=== PATIENT | female | born 1965 | race Caucasian/White ===

== ENCOUNTER 2017-10-11 06:37 | Inpatient (IN) | payer MEDICARE, OTHER ==
[2017-10-11] MEDS: ONDANSETRON 4 MG INJ IV ×4 (07:09→10:58)
[2017-10-11] MEDS: HYDROmorphONE 2 MG/ML SYG IV (07:09)
[2017-10-11 07:34] LABS: ADD MAN DIFF? NO
[2017-10-11 07:47] LABS: ABNORMAL IP MESSAGE 1; BASOPHIL # 0.1 10^3/ul (0.0-0.1); EOSINOPHILS # 0.4 10^3/ul (0.0-0.5); EOSINOPHILS % 7.1 % (0.0-7.0); HEMATOCRIT 31.6 % (37.0-47.0); HEMOGLOBIN 11.3 g/dl (12.0-16.0); LYMPHOCYTES # 2.5 10^3/ul (0.8-2.9); MEAN CORPUSCULAR HGB CONC 35.8 g/dl (32.0-37.0); MEAN CORPUSCULAR VOLUME 103.6 fl (82.0-101.0); MEAN PLATELET VOLUME 13.1 fl (7.4-10.4); MONOCYTE # 0.6 10^3/ul (0.3-0.9); MONOCYTES % 11.7 % (0.0-11.0); NEUTROPHIL # 1.5 10^3/ul (1.6-7.5); PLATELET COUNT 162 10^3/UL (140-415); RED BLOOD COUNT 3.05 10^6/ul (4.20-5.40); RED CELL DISTRIBUTION WIDTH 14.4 % (11.5-14.5)
[2017-10-11 07:49] LABS: POSITIVE DIFF @See below
[2017-10-11 08:06] LABS: INR 1.29; PARTIAL THROMBOPLASTIN TIME 35.8 Sec (25.0-35.0); PROTIME 16.3 Sec (11.9-14.9); PT RATIO 1.3
[2017-10-11] MEDS: CEFTRIAXONE 1 GM/50 ML (PMX) 50 ML IVPB ×2 (08:14→10:58)
[2017-10-11] MEDS: HYDROmorphONE 1 MG/ML SYG IV ×2 (08:15→09:13)
[2017-10-11 08:16] LABS: ALANINE AMINOTRANSFERASE 47 IU/L (13-69); ALBUMIN 3.8 g/dl (3.3-4.9); ALKALINE PHOSPHATASE 165 IU/L (42-121); ANION GAP 21 (8-16); ASPARTATE AMINO TRANSFERASE 84 IU/L (15-46); BILIRUBIN,INDIRECT 0.6 mg/dl (0-1.1); BILIRUBIN,TOTAL 0.6 mg/dl (0.2-1.3); BLOOD UREA NITROGEN 11 mg/dl (7-20); CALCIUM 8.6 mg/dl (8.4-10.2); CARBON DIOXIDE 26 mmol/L (21-31); CHLORIDE 101 mmol/L (97-110); CREATININE 0.84 mg/dl (0.44-1.00); GLUCOSE 217 mg/dl (70-220); SODIUM 144 mmol/L (135-144); TOTAL PROTEIN 7.7 g/dl (6.1-8.1)
[2017-10-11] MEDS ORDERED: ACETAMINOPHEN 325 MG TAB PO (09:30)
[2017-10-11] MEDS ORDERED: ONDANSETRON 4 MG INJ IV ×2 (10:00→18:30)
[2017-10-11] MEDS ORDERED: VANCOMYCIN IV PER PHARMACY XX (10:30)
[2017-10-11] MEDS: morphine 2 MG INJ IV (10:58)
[2017-10-11 11:13] LABS: HEMOGLOBIN A1C 7.1 % (0-5.9)
[2017-10-11 11:29] LABS: CREATINE KINASE 609 IU/L (23-200)
[2017-10-11 11:31] LABS: MAGNESIUM 1.2 mg/dl (1.7-2.5)
[2017-10-11 11:31] LABS: PHOSPHORUS 4.3 mg/dl (2.5-4.9)
[2017-10-11 11:39] LABS: CK INDEX 1.2; CK-MB 7.59 ng/ml (0.0-2.4)
[2017-10-11 11:46] LABS: TROPONIN-I < 0.012 ng/ml (0.00-0.12)
[2017-10-11] MEDS ORDERED: morphine 4 MG/ML VIAL (12:17)
[2017-10-11] MEDS: morphine 4 MG/ML VIAL IV ×2 (12:20→21:46)
[2017-10-11] MEDS: SOD CHLORIDE 0.9% 1,000 ML IV ×3 (12:20→22:29)
[2017-10-11] MEDS: LORAZEPAM 2 MG INJ IV (12:32)
[2017-10-11] MEDS: GABAPENTIN 300 MG CAP PO ×2 (13:00→21:00)
[2017-10-11] MEDS: VANCOMYCIN 1 GM in SODIUM CHLORIDE 0.45 % 250 ML IVPB (13:00)
[2017-10-11 15:20] LABS: CREATINE KINASE 501 IU/L (23-200)
[2017-10-11 15:32] LABS: CK INDEX 1.4; CK-MB 6.86 ng/ml (0.0-2.4)
[2017-10-11 15:35] LABS: TROPONIN-I < 0.012 ng/ml (0.00-0.12)
[2017-10-11] MEDS ORDERED: LIDOCAINE 2% (SDV) 5 ML INJ (16:18)
[2017-10-11] MEDS ORDERED: PROPOFOL 0 ML (16:18)
[2017-10-11] MEDS ORDERED: MIDAZOLAM 1 MG/ML 2 ML INJ ×2 (16:18→17:16)
[2017-10-11] MEDS ORDERED: POLYMYXIN/BACITRACIN 1L IRRIG (16:18)
[2017-10-11] MEDS ORDERED: FENTAnyl 50 MCG/ML VIAL ×2 (16:18→17:16)
[2017-10-11] MEDS ORDERED: GLUCOSE GEL 15 GRAM TUBE BUCCAL (16:30)
[2017-10-11] MEDS ORDERED: GLUCOSE GEL 15 GRAM TUBE PO ×2 (16:30)
[2017-10-11] MEDS ORDERED: GLUCAGON 1 MG INJ IM (16:30)
[2017-10-11] MEDS ORDERED: DEXTROSE 50% 50 ML SYRINGE IV ×2 (16:30)
[2017-10-11] MEDS ORDERED: CEFAZOLIN 1 GM INJ (17:00)
[2017-10-11] MEDS ORDERED: PROPOFOL 20 ML (17:15)
[2017-10-11] MEDS ORDERED: ROPIVACAINE 0.5 % 30 ML VIAL (17:16)
[2017-10-11] MEDS ORDERED: BACITRACIN 50000 UNITS INJ (17:38)
[2017-10-11] MEDS: CREON (12k-38k-60k) 1 CAP PO (17:55)
[2017-10-11] MEDS: INSULIN ASPART [NOVOLOG] 3 ML PEN SC ×2 (17:55→22:47)
[2017-10-11] MEDS ORDERED: METOCLOPRAMIDE 10 MG INJ IV (18:30)
[2017-10-11] MEDS ORDERED: HYDROmorphONE (0.2 MG/ML) 10ML SYG IV ×3 (18:30)
[2017-10-11] MEDS ORDERED: FENTAnyl 50 MCG/ML VIAL IV ×3 (18:30)
[2017-10-11] MEDS ORDERED: MEPERIDINE 25 MG INJ IV (18:30)
[2017-10-11] MEDS ORDERED: morphine (1 MG/ML) 10ML SYRINGE IV ×3 (18:30)
[2017-10-11] MEDS ORDERED: LABETALOL HCL 20MG INJ IV (18:30)
[2017-10-11] MEDS ORDERED: DIPHENHYDRAMINE 50 MG INJ IV (18:30)
[2017-10-11] MEDS ORDERED: hydrALAzine 20 MG INJ IV (18:30)
[2017-10-11] MEDS ORDERED: EPHEDrine SULFATE 50 MG/5 ML SYG IV (18:30)
[2017-10-11] MEDS ORDERED: OXYCODONE/ACETAMINOPHEN (5/325) TAB PO ×2 (18:30)
[2017-10-11] MEDS: BACITRACIN 50000 UNITS INJ IRR (18:40)
[2017-10-11] MEDS: SODIUM CHLORIDE 0.9% 1L IRRIG IRR (18:41)
[2017-10-11] MEDS: POLYMYXIN/BACITRACIN 1L IRRIG IRR (18:49)
[2017-10-11] MEDS ORDERED: ONDANSETRON 4 MG INJ (19:19)
[2017-10-11] MEDS ORDERED: DEXAMETHASONE 4 MG/ML 1 ML INJ (19:19)
[2017-10-11] MEDS ORDERED: METOCLOPRAMIDE 10 MG INJ (19:19)
[2017-10-11] MEDS ORDERED: KETOROLAC 30 MG INJ (19:20)
[2017-10-11] MEDS ORDERED: ACETAMINOPHEN 1000MG/100ML IV 100 ML (19:20)
[2017-10-11] MEDS ORDERED: MEPERIDINE 100 MG INJ (20:20)
[2017-10-11] MEDS ORDERED: morphine 4 MG/ML VIAL IV (20:30)
[2017-10-11] MEDS ORDERED: NACL 0.9% 3 ML SYG IV (20:30)
[2017-10-11] MEDS: RIFAXIMIN 550 MG TAB PO (21:00)
[2017-10-11] MEDS: PANTOPRAZOLE (EC) 40 MG TAB PO (21:00)
[2017-10-11 21:14] LABS: WHITE BLOOD COUNT 4.2 10^3/ul (4.8-10.8)
[2017-10-11 21:14] LABS: ABNORMAL IP MESSAGE 1; HEMATOCRIT 30.4 % (37.0-47.0); HEMOGLOBIN 10.5 g/dl (12.0-16.0); MEAN CORPUSCULAR HEMOGLOBIN 36.7 pg (29.0-33.0); MEAN CORPUSCULAR HGB CONC 34.5 g/dl (32.0-37.0); MEAN CORPUSCULAR VOLUME 106.3 fl (82.0-101.0); MEAN PLATELET VOLUME 12.1 fl (7.4-10.4); PLATELET COUNT 92 10^3/UL (140-415); RED BLOOD COUNT 2.86 10^6/ul (4.20-5.40); RED CELL DISTRIBUTION WIDTH 14.4 % (11.5-14.5)
[2017-10-11 21:19] LABS: POSITIVE DIFF @See below
[2017-10-11 21:20] LABS: ADD MAN DIFF? YES
[2017-10-11 21:30] LABS: ANION GAP 15 (8-16); BLOOD UREA NITROGEN 10 mg/dl (7-20); CALCIUM 8.1 mg/dl (8.4-10.2); CARBON DIOXIDE 24 mmol/L (21-31); CHLORIDE 105 mmol/L (97-110); CREATININE 0.69 mg/dl (0.44-1.00); GLUCOSE 152 mg/dl (70-220); SODIUM 140 mmol/L (135-144)
[2017-10-11] MEDS ORDERED: NALOXONE (0.4 MG/ML) INJ (21:31)
[2017-10-11] MEDS: CEFAZOLIN 1 GM/50 ML (PMX) 50 ML IVPB (22:44)
[2017-10-11 22:55] LABS: ANISOCYTOSIS 2+ (0-0); BAND NEUTROPHILS % (M) 2 % (0-4); BASOPHILS % (M) 1 % (0-2); BURR CELLS 2+ (0-0); EOSINOPHILS % (M) 2 % (0-7); LYMPHOCYTES #M 0.6 10^3/ul (0.8-2.9); LYMPHOCYTES % (M) 16 % (15-51); MONOCYTE #M 0.3 10^3/ul (0.3-0.9); MONOCYTES % (M) 9 % (0-11); OVALOCYTES 1+ (0-0); PLATELET ESTIMATE DECREASED; POIKILOCYTOSIS 1+ (0-0); SEG NEUT #M 2.9 10^3/ul (1.7-7.5); SEGMENTED NEUTROPHILS (M) % 70 % (39-77); SMUDGE%M 6 % (0-0)
[2017-10-12] MEDS: VANCOMYCIN 1 GM 250 ML IVPB (01:03)
[2017-10-12] MEDS: ACCU-CHEK XX (02:00)
[2017-10-12] MEDS: MAGNESIUM SULFATE 3 GM in DEXTROSE 5% 100 ML IVPB (03:23)
[2017-10-12 03:49] LABS: AMPHETAMINE/METHAMPHETAMINE Negative (NEGATIVE); BARBITURATES Negative (NEGATIVE); BENZODIAZEPINES Positive (NEGATIVE); CANNABINOIDS Negative (NEGATIVE); COCAINE Negative (NEGATIVE); OPIATES Positive (NEGATIVE)
[2017-10-12 04:21] LABS: ADD UMIC NO; UR ASCORBIC ACID NEGATIVE (NEGATIVE); UR BILIRUBIN (Dip) NEGATIVE (NEGATIVE); UR BLOOD (Dip) NEGATIVE (NEGATIVE); UR CLARITY CLEAR (CLEAR); UR COLOR YELLOW (YELLOW); UR GLUCOSE (Dip) NEGATIVE (NEGATIVE); UR KETONES (Dip) NEGATIVE (NEGATIVE); UR LEUKOCYTE ESTERASE (Dip) NEGATIVE Leu/ul (NEGATIVE); UR NITRITE (Dip) NEGATIVE (NEGATIVE); UR SPECIFIC GRAVITY (Dip) 1.018 (1.003-1.030); UR TOTAL PROTEIN (Dip) NEGATIVE (NEGATIVE); UR UROBILINOGEN (Dip) NEGATIVE (NEGATIVE)
[2017-10-12] MEDS: SOD CHLORIDE 0.9% 1,000 ML IV ×3 (04:50→16:51)
[2017-10-12] MEDS: LEVOTHYROXINE 88 MCG TAB PO (06:35)
[2017-10-12] MEDS: CEFAZOLIN 1 GM/50 ML (PMX) 50 ML IVPB ×2 (06:36→11:59)
[2017-10-12] MEDS: CREON (12k-38k-60k) 1 CAP PO ×3 (08:26→17:28)
[2017-10-12] MEDS: GABAPENTIN 300 MG CAP PO ×3 (08:27→20:22)
[2017-10-12] MEDS: FUROSEMIDE 20 MG TAB PO (08:27)
[2017-10-12] MEDS: SPIRONOLACTONE 50 MG TAB PO (08:27)
[2017-10-12] MEDS: PANTOPRAZOLE (EC) 40 MG TAB PO ×2 (08:27→20:23)
[2017-10-12] MEDS: ENOXAPARIN 40 MG/0.4 ML SYG SC (08:34)
[2017-10-12] MEDS: INSULIN ASPART [NOVOLOG] 3 ML PEN SC ×6 (08:34→20:30)
[2017-10-12] MEDS: RIFAXIMIN 550 MG TAB PO ×2 (08:35→20:23)
[2017-10-12] MEDS: morphine 4 MG/ML VIAL IV (11:17)
[2017-10-12] MEDS ORDERED: HYDROCORTISONE 2.5% 20 GM CR TOP (11:30)
[2017-10-12] MEDS: HYDROmorphONE 2 MG TAB PO (11:57)
[2017-10-12] MEDS ORDERED: HYDROmorphONE 0.5 MG/0.5 ML SYG IV (12:00)
[2017-10-12] MEDS: HYDROmorphONE 0.5 MG/0.5 ML SYG IV (12:33)
[2017-10-12] MEDS ORDERED: morphine 4 MG/ML VIAL IV (13:00)
[2017-10-12] MEDS: HYDROmorphONE 1 MG/ML SYG IV ×4 (13:33→23:34)
[2017-10-12] MEDS ORDERED: VANCOMYCIN IV PER PHARMACY XX (14:00)
[2017-10-12] MEDS: VANCOMYCIN 750 MG in DEXTROSE 5% 150 ML IVPB (14:49)
[2017-10-12] MEDS: metroNIDAZOLE 500 MG/NS (PMX) 100 ML IVPB ×2 (16:51→22:05)
[2017-10-12] MEDS: CEFEPIME 1GM/50 ML (PMX) 50 ML IVPB ×2 (17:51→23:34)
[2017-10-12] MEDS: INSULIN GLARGINE [LANtus] 3 ML PEN SC (20:34)
[2017-10-13] MEDS: ACCU-CHEK XX (02:00)
[2017-10-13] MEDS: SOD CHLORIDE 0.9% 1,000 ML IV ×3 (02:00→11:09)
[2017-10-13] MEDS: VANCOMYCIN 750 MG in DEXTROSE 5% 150 ML IVPB ×2 (02:31→14:46)
[2017-10-13] MEDS: HYDROmorphONE 1 MG/ML SYG IV ×5 (03:38→22:43)
[2017-10-13] MEDS: HYDROCODONE/APAP (5/325) TAB PO ×2 (04:01→21:06)
[2017-10-13 05:04] LABS: ADD MAN DIFF? NO
[2017-10-13] MEDS: morphine 4 MG/ML VIAL IV ×2 (05:08→11:09)
[2017-10-13 05:15] LABS: WHITE BLOOD COUNT 9.5 10^3/ul (4.8-10.8)
[2017-10-13 05:15] LABS: ABNORMAL IP MESSAGE 1; BASOPHILS % 0.3 % (0.0-2.0); EOSINOPHILS # 0.1 10^3/ul (0.0-0.5); EOSINOPHILS % 0.6 % (0.0-7.0); HEMATOCRIT 25.7 % (37.0-47.0); HEMOGLOBIN 8.9 g/dl (12.0-16.0); LYMPHOCYTES # 1.5 10^3/ul (0.8-2.9); LYMPHOCYTES % 15.7 % (15.0-51.0); MEAN CORPUSCULAR HEMOGLOBIN 37.1 pg (29.0-33.0); MEAN CORPUSCULAR HGB CONC 34.6 g/dl (32.0-37.0); MEAN CORPUSCULAR VOLUME 107.1 fl (82.0-101.0); MEAN PLATELET VOLUME 12.7 fl (7.4-10.4); MONOCYTE # 1.1 10^3/ul (0.3-0.9); MONOCYTES % 11.9 % (0.0-11.0); NEUTROPHIL # 6.7 10^3/ul (1.6-7.5); NEUTROPHILS % 71.1 % (39.0-77.0); PLATELET COUNT 91 10^3/UL (140-415); RED CELL DISTRIBUTION WIDTH 14.4 % (11.5-14.5)
[2017-10-13 05:45] LABS: POSITIVE DIFF @See below
[2017-10-13 06:14] LABS: ALANINE AMINOTRANSFERASE 35 IU/L (13-69); ALBUMIN 2.8 g/dl (3.3-4.9); ALKALINE PHOSPHATASE 118 IU/L (42-121); ANION GAP 14 (8-16); ASPARTATE AMINO TRANSFERASE 50 IU/L (15-46); BILIRUBIN,INDIRECT 0.7 mg/dl (0-1.1); BILIRUBIN,TOTAL 0.7 mg/dl (0.2-1.3); BLOOD UREA NITROGEN 21 mg/dl (7-20); CALCIUM 7.6 mg/dl (8.4-10.2); CARBON DIOXIDE 26 mmol/L (21-31); CHLORIDE 100 mmol/L (97-110); CREATININE 0.85 mg/dl (0.44-1.00); GLUCOSE 312 mg/dl (70-220); MAGNESIUM 1.9 mg/dl (1.7-2.5); PHOSPHORUS 2.5 mg/dl (2.5-4.9); POTASSIUM 4.3 mmol/L (3.5-5.1); SODIUM 136 mmol/L (135-144); TOTAL PROTEIN 6.1 g/dl (6.1-8.1)
[2017-10-13] MEDS: LEVOTHYROXINE 88 MCG TAB PO (06:22)
[2017-10-13] MEDS: metroNIDAZOLE 500 MG/NS (PMX) 100 ML IVPB ×3 (06:22→22:45)
[2017-10-13] MEDS: FUROSEMIDE 20 MG TAB PO (08:12)
[2017-10-13] MEDS: SPIRONOLACTONE 50 MG TAB PO (08:12)
[2017-10-13] MEDS: RIFAXIMIN 550 MG TAB PO ×2 (08:18→20:24)
[2017-10-13] MEDS: CREON (12k-38k-60k) 1 CAP PO ×3 (08:18→17:27)
[2017-10-13] MEDS: GABAPENTIN 300 MG CAP PO ×3 (08:18→20:24)
[2017-10-13] MEDS: CEFEPIME 1GM/50 ML (PMX) 50 ML IVPB ×2 (08:19→20:24)
[2017-10-13] MEDS: PANTOPRAZOLE (EC) 40 MG TAB PO ×2 (08:19→20:24)
[2017-10-13] MEDS: INSULIN ASPART [NOVOLOG] 3 ML PEN SC ×7 (08:29→21:00)
[2017-10-13] MEDS: ENOXAPARIN 40 MG/0.4 ML SYG SC (08:30)
[2017-10-13] MEDS: LORAZEPAM 0.5 MG TAB PO (13:22)
[2017-10-13 14:00] LABS: VANCOMYCIN,TROUGH 16.2 ug/ml (10.0-20.0)
[2017-10-13] MEDS: INSULIN GLARGINE [LANtus] 3 ML PEN SC (20:44)
[2017-10-14] MEDS: morphine 4 MG/ML VIAL IV ×2 (00:47→09:13)
[2017-10-14] MEDS: HYDROCODONE/APAP (5/325) TAB PO ×3 (01:22→17:04)
[2017-10-14] MEDS: ACCU-CHEK XX (02:00)
[2017-10-14] MEDS: LORAZEPAM 0.5 MG TAB PO (02:14)
[2017-10-14] MEDS: HYDROmorphONE 1 MG/ML SYG IV ×3 (03:09→12:18)
[2017-10-14 05:09] LABS: ADD MAN DIFF? NO
[2017-10-14 05:15] LABS: WHITE BLOOD COUNT 6.6 10^3/ul (4.8-10.8)
[2017-10-14 05:15] LABS: ABNORMAL IP MESSAGE 1; BASOPHILS % 0.6 % (0.0-2.0); EOSINOPHILS # 0.2 10^3/ul (0.0-0.5); EOSINOPHILS % 3.6 % (0.0-7.0); HEMATOCRIT 25.3 % (37.0-47.0); HEMOGLOBIN 8.6 g/dl (12.0-16.0); LYMPHOCYTES # 1.8 10^3/ul (0.8-2.9); LYMPHOCYTES % 27.2 % (15.0-51.0); MEAN CORPUSCULAR HEMOGLOBIN 36.1 pg (29.0-33.0); MEAN CORPUSCULAR VOLUME 106.3 fl (82.0-101.0); MEAN PLATELET VOLUME 12.7 fl (7.4-10.4); MONOCYTE # 0.9 10^3/ul (0.3-0.9); MONOCYTES % 13.1 % (0.0-11.0); NEUTROPHIL # 3.6 10^3/ul (1.6-7.5); NEUTROPHILS % 55.3 % (39.0-77.0); PLATELET COUNT 83 10^3/UL (140-415); RED BLOOD COUNT 2.38 10^6/ul (4.20-5.40); RED CELL DISTRIBUTION WIDTH 14.1 % (11.5-14.5)
[2017-10-14 05:23] LABS: POSITIVE DIFF @See below
[2017-10-14 05:39] LABS: IRON 57 ug/dl (35-150)
[2017-10-14] MEDS: VANCOMYCIN 500MG/NS (PMX) 100 ML IVPB ×2 (05:41→17:02)
[2017-10-14 05:48] LABS: % IRON SATURATION 22 % SAT (22-52); ANION GAP 11 (8-16); BLOOD UREA NITROGEN 13 mg/dl (7-20); CALCIUM 8.1 mg/dl (8.4-10.2); CARBON DIOXIDE 26 mmol/L (21-31); CHLORIDE 105 mmol/L (97-110); CREATININE 0.77 mg/dl (0.44-1.00); GLUCOSE 252 mg/dl (70-220); MAGNESIUM 1.6 mg/dl (1.7-2.5); PHOSPHORUS 2.1 mg/dl (2.5-4.9); POTASSIUM 3.7 mmol/L (3.5-5.1); SODIUM 138 mmol/L (135-144); TOTAL IRON BINDING CAPACITY 258 ug/dl (241-421)
[2017-10-14] MEDS: metroNIDAZOLE 500 MG/NS (PMX) 100 ML IVPB ×3 (06:32→21:31)
[2017-10-14] MEDS: LEVOTHYROXINE 88 MCG TAB PO (07:28)
[2017-10-14] MEDS: CREON (12k-38k-60k) 1 CAP PO ×3 (08:59→17:03)
[2017-10-14] MEDS: FUROSEMIDE 20 MG TAB PO (09:00)
[2017-10-14] MEDS: RIFAXIMIN 550 MG TAB PO ×2 (09:00→20:50)
[2017-10-14] MEDS: GABAPENTIN 300 MG CAP PO ×3 (09:00→20:50)
[2017-10-14] MEDS: SPIRONOLACTONE 50 MG TAB PO (09:01)
[2017-10-14] MEDS: PANTOPRAZOLE (EC) 40 MG TAB PO ×2 (09:01→20:50)
[2017-10-14] MEDS: ENOXAPARIN 40 MG/0.4 ML SYG SC (09:07)
[2017-10-14] MEDS: INSULIN ASPART [NOVOLOG] 3 ML PEN SC ×7 (09:07→21:00)
[2017-10-14] MEDS: CEFEPIME 1GM/50 ML (PMX) 50 ML IVPB ×2 (09:12→21:09)
[2017-10-14] MEDS: SOD CHLORIDE 0.9% 1,000 ML IV ×2 (09:17→16:43)
[2017-10-14] MEDS ORDERED: HYDROmorphONE 0.5 MG/0.5 ML SYG IV (13:00)
[2017-10-14 15:07] LABS: FOLATE 8.9 ng/ml (2.8-20.0)
[2017-10-14] MEDS: morphine 2 MG INJ IV ×2 (15:13→20:45)
[2017-10-14] MEDS: LACTULOSE 30ML CUP PO (20:50)
[2017-10-14] MEDS: INSULIN GLARGINE [LANtus] 3 ML PEN SC (20:56)
[2017-10-14] MEDS: HYDROmorphONE 2 MG TAB PO (21:29)
[2017-10-15] MEDS: morphine 2 MG INJ IV ×3 (00:50→10:39)
[2017-10-15] MEDS: ACCU-CHEK XX (02:00)
[2017-10-15] MEDS: HYDROmorphONE 2 MG TAB PO ×6 (02:01→19:59)
[2017-10-15] MEDS: SOD CHLORIDE 0.9% 1,000 ML IV ×3 (04:48→22:05)
[2017-10-15] MEDS: VANCOMYCIN 500MG/NS (PMX) 100 ML IVPB ×2 (04:50→17:31)
[2017-10-15 05:42] LABS: ADD MAN DIFF? NO
[2017-10-15] MEDS: LEVOTHYROXINE 88 MCG TAB PO (05:47)
[2017-10-15] MEDS: metroNIDAZOLE 500 MG/NS (PMX) 100 ML IVPB ×3 (05:48→22:04)
[2017-10-15 05:49] LABS: WHITE BLOOD COUNT 5.8 10^3/ul (4.8-10.8)
[2017-10-15 05:49] LABS: ABNORMAL IP MESSAGE 1; BASOPHILS % 0.7 % (0.0-2.0); EOSINOPHILS # 0.3 10^3/ul (0.0-0.5); EOSINOPHILS % 5.4 % (0.0-7.0); HEMATOCRIT 25.4 % (37.0-47.0); HEMOGLOBIN 8.7 g/dl (12.0-16.0); LYMPHOCYTES # 1.7 10^3/ul (0.8-2.9); LYMPHOCYTES % 29.4 % (15.0-51.0); MEAN CORPUSCULAR HEMOGLOBIN 36.7 pg (29.0-33.0); MEAN CORPUSCULAR HGB CONC 34.3 g/dl (32.0-37.0); MEAN CORPUSCULAR VOLUME 107.2 fl (82.0-101.0); MEAN PLATELET VOLUME 12.4 fl (7.4-10.4); MONOCYTE # 0.7 10^3/ul (0.3-0.9); MONOCYTES % 11.9 % (0.0-11.0); NEUTROPHILS % 52.3 % (39.0-77.0); PLATELET COUNT 88 10^3/UL (140-415); RED BLOOD COUNT 2.37 10^6/ul (4.20-5.40)
[2017-10-15 05:56] LABS: POSITIVE DIFF @See below
[2017-10-15 06:24] LABS: ALBUMIN 2.4 g/dl (3.3-4.9); ANION GAP 10 (8-16); BLOOD UREA NITROGEN 7 mg/dl (7-20); CARBON DIOXIDE 24 mmol/L (21-31); CHLORIDE 109 mmol/L (97-110); CREATININE 0.67 mg/dl (0.44-1.00); GLUCOSE 150 mg/dl (70-220); MAGNESIUM 1.4 mg/dl (1.7-2.5); PHOSPHORUS 2.1 mg/dl (2.5-4.9); POTASSIUM 3.9 mmol/L (3.5-5.1); SODIUM 139 mmol/L (135-144)
[2017-10-15] MEDS: INSULIN ASPART [NOVOLOG] 3 ML PEN SC ×7 (07:50→20:06)
[2017-10-15] MEDS: RIFAXIMIN 550 MG TAB PO ×2 (08:45→20:01)
[2017-10-15] MEDS: SPIRONOLACTONE 50 MG TAB PO (08:46)
[2017-10-15] MEDS: GABAPENTIN 300 MG CAP PO ×3 (08:46→20:03)
[2017-10-15] MEDS: LACTULOSE 30ML CUP PO ×2 (08:46→20:03)
[2017-10-15] MEDS: PANTOPRAZOLE (EC) 40 MG TAB PO ×2 (08:48→20:01)
[2017-10-15] MEDS: CREON (12k-38k-60k) 1 CAP PO ×3 (08:48→17:57)
[2017-10-15] MEDS: FUROSEMIDE 20 MG TAB PO (08:49)
[2017-10-15] MEDS: ENOXAPARIN 40 MG/0.4 ML SYG SC (09:11)
[2017-10-15] MEDS: CEFEPIME 1GM/50 ML (PMX) 50 ML IVPB ×2 (09:32→20:03)
[2017-10-15] MEDS: HYDROCODONE/APAP (5/325) TAB PO ×2 (09:33→18:09)
[2017-10-15] MEDS: MAGNESIUM OXIDE 400 MG TAB PO (13:25)
[2017-10-15] MEDS: INSULIN GLARGINE [LANtus] 3 ML PEN SC (20:09)
[2017-10-16] MEDS: ACCU-CHEK XX (01:28)
[2017-10-16] MEDS: HYDROmorphONE 2 MG TAB PO ×4 (03:10→14:30)
[2017-10-16 04:14] LABS: ADD MAN DIFF? NO
[2017-10-16 04:18] LABS: ABNORMAL IP MESSAGE 1; BASOPHILS % 0.4 % (0.0-2.0); EOSINOPHILS # 0.3 10^3/ul (0.0-0.5); EOSINOPHILS % 5.9 % (0.0-7.0); HEMATOCRIT 25.8 % (37.0-47.0); HEMOGLOBIN 8.9 g/dl (12.0-16.0); LYMPHOCYTES # 1.4 10^3/ul (0.8-2.9); LYMPHOCYTES % 26.1 % (15.0-51.0); MEAN CORPUSCULAR HEMOGLOBIN 37.2 pg (29.0-33.0); MEAN CORPUSCULAR HGB CONC 34.5 g/dl (32.0-37.0); MEAN CORPUSCULAR VOLUME 107.9 fl (82.0-101.0); MEAN PLATELET VOLUME 11.6 fl (7.4-10.4); MONOCYTE # 0.7 10^3/ul (0.3-0.9); MONOCYTES % 13.7 % (0.0-11.0); NEUTROPHIL # 2.9 10^3/ul (1.6-7.5); NEUTROPHILS % 53.7 % (39.0-77.0); PLATELET COUNT 90 10^3/UL (140-415); RED BLOOD COUNT 2.39 10^6/ul (4.20-5.40); RED CELL DISTRIBUTION WIDTH 13.6 % (11.5-14.5)
[2017-10-16 04:18] LABS: WHITE BLOOD COUNT 5.4 10^3/ul (4.8-10.8)
[2017-10-16 04:21] LABS: POSITIVE DIFF @See below
[2017-10-16] MEDS: HYDROCODONE/APAP (5/325) TAB PO (04:23)
[2017-10-16 04:46] LABS: ALBUMIN 2.2 g/dl (3.3-4.9); ANION GAP 10 (8-16); BLOOD UREA NITROGEN 5 mg/dl (7-20); CARBON DIOXIDE 24 mmol/L (21-31); CHLORIDE 107 mmol/L (97-110); CREATININE 0.63 mg/dl (0.44-1.00); GLUCOSE 234 mg/dl (70-220); MAGNESIUM 1.2 mg/dl (1.7-2.5); PHOSPHORUS 2.5 mg/dl (2.5-4.9); POTASSIUM 4.3 mmol/L (3.5-5.1); SODIUM 137 mmol/L (135-144)
[2017-10-16] MEDS: VANCOMYCIN 1 GM 250 ML IVPB (05:27)
[2017-10-16] MEDS: metroNIDAZOLE 500 MG/NS (PMX) 100 ML IVPB ×2 (07:14→14:22)
[2017-10-16] MEDS: LEVOTHYROXINE 88 MCG TAB PO (07:18)
[2017-10-16] MEDS: CREON (12k-38k-60k) 1 CAP PO ×3 (09:02→17:46)
[2017-10-16] MEDS: RIFAXIMIN 550 MG TAB PO ×2 (09:02→20:28)
[2017-10-16] MEDS: GABAPENTIN 300 MG CAP PO ×3 (09:02→20:28)
[2017-10-16] MEDS: PANTOPRAZOLE (EC) 40 MG TAB PO ×2 (09:02→20:28)
[2017-10-16] MEDS: SPIRONOLACTONE 50 MG TAB PO (09:03)
[2017-10-16] MEDS: FUROSEMIDE 20 MG TAB PO (09:03)
[2017-10-16] MEDS: LACTULOSE 30ML CUP PO ×2 (09:03→21:00)
[2017-10-16] MEDS: CEFEPIME 1GM/50 ML (PMX) 50 ML IVPB (09:04)
[2017-10-16] MEDS: INSULIN ASPART [NOVOLOG] 3 ML PEN SC ×7 (09:08→21:00)
[2017-10-16] MEDS: ENOXAPARIN 40 MG/0.4 ML SYG SC (09:10)
[2017-10-16] MEDS: SOD CHLORIDE 0.9% 1,000 ML IV ×2 (10:12→20:12)
[2017-10-16] MEDS: MAGNESIUM OXIDE 400 MG TAB PO (14:50)
[2017-10-16] MEDS: oxyCODONE 5 MG TAB PO ×2 (17:47→22:18)
[2017-10-16] MEDS: LORAZEPAM 0.5 MG TAB PO (20:28)
[2017-10-16] MEDS: INSULIN GLARGINE [LANtus] 3 ML PEN SC (20:36)
[2017-10-17] MEDS: ACCU-CHEK XX (01:29)
[2017-10-17] MEDS: oxyCODONE 5 MG TAB PO ×4 (02:18→15:19)
[2017-10-17] MEDS: LORAZEPAM 0.5 MG TAB PO ×2 (03:26→09:19)
[2017-10-17] MEDS: morphine 2 MG INJ IV (04:51)
[2017-10-17 05:12] LABS: ADD MAN DIFF? NO
[2017-10-17 05:18] LABS: WHITE BLOOD COUNT 6.5 10^3/ul (4.8-10.8)
[2017-10-17 05:18] LABS: ABNORMAL IP MESSAGE 1; BASOPHILS % 0.5 % (0.0-2.0); EOSINOPHILS # 0.3 10^3/ul (0.0-0.5); EOSINOPHILS % 4.8 % (0.0-7.0); HEMATOCRIT 25.1 % (37.0-47.0); HEMOGLOBIN 8.9 g/dl (12.0-16.0); LYMPHOCYTES # 1.7 10^3/ul (0.8-2.9); LYMPHOCYTES % 25.6 % (15.0-51.0); MEAN CORPUSCULAR HEMOGLOBIN 36.8 pg (29.0-33.0); MEAN CORPUSCULAR HGB CONC 35.5 g/dl (32.0-37.0); MEAN CORPUSCULAR VOLUME 103.7 fl (82.0-101.0); MEAN PLATELET VOLUME 12.2 fl (7.4-10.4); NEUTROPHIL # 3.5 10^3/ul (1.6-7.5); NEUTROPHILS % 53.8 % (39.0-77.0); RED BLOOD COUNT 2.42 10^6/ul (4.20-5.40); RED CELL DISTRIBUTION WIDTH 13.4 % (11.5-14.5)
[2017-10-17 05:46] LABS: ALBUMIN 2.3 g/dl (3.3-4.9); ANION GAP 8 (8-16); BLOOD UREA NITROGEN 5 mg/dl (7-20); CALCIUM 8.5 mg/dl (8.4-10.2); CARBON DIOXIDE 27 mmol/L (21-31); CHLORIDE 104 mmol/L (97-110); CREATININE 0.67 mg/dl (0.44-1.00); GLUCOSE 80 mg/dl (70-220); PHOSPHORUS 3.1 mg/dl (2.5-4.9); POTASSIUM 3.4 mmol/L (3.5-5.1); SODIUM 136 mmol/L (135-144)
[2017-10-17 05:55] LABS: MAGNESIUM 0.9 mg/dl (1.7-2.5)
[2017-10-17] MEDS: LEVOFLOXACIN 750 MG TABLET PO (06:06)
[2017-10-17] MEDS: LEVOTHYROXINE 88 MCG TAB PO (06:06)
[2017-10-17] MEDS: SOD CHLORIDE 0.9% 1,000 ML IV (06:12)
[2017-10-17 06:59] LABS: POSITIVE DIFF @See below
[2017-10-17 07:00] LABS: PLATELET COUNT 86 10^3/UL (140-415)
[2017-10-17] MEDS: INSULIN ASPART [NOVOLOG] 3 ML PEN SC ×4 (07:50→13:59)
[2017-10-17] MEDS: LACTULOSE 30ML CUP PO (09:17)
[2017-10-17] MEDS: GABAPENTIN 300 MG CAP PO ×2 (09:18→13:49)
[2017-10-17] MEDS: RIFAXIMIN 550 MG TAB PO (09:18)
[2017-10-17] MEDS: FUROSEMIDE 20 MG TAB PO (09:18)
[2017-10-17] MEDS: CREON (12k-38k-60k) 1 CAP PO ×2 (09:18→13:49)
[2017-10-17] MEDS: TRIMETHOPRIM/SULFAMETHOX (DS) TAB PO (09:19)
[2017-10-17] MEDS: PANTOPRAZOLE (EC) 40 MG TAB PO (09:19)
[2017-10-17] MEDS: SPIRONOLACTONE 50 MG TAB PO (09:19)
[2017-10-17] MEDS: ENOXAPARIN 40 MG/0.4 ML SYG SC (09:30)
[2017-10-17] MEDS: MAGNESIUM OXIDE 400 MG TAB PO (10:53)
[2017-10-17] MEDS: POTASSIUM CHLORIDE (SR) 20 MEQ TAB PO (10:54)
[2017-10-17] MEDS: traMADol-APAP 37.5-325 1 TAB PO (10:54)
[2017-10-17] MEDS: MAGNESIUM SULFATE 4 GM/100 ML 100 ML IVPB (10:56)
[2017-10-17] MEDS ORDERED: INSULIN GLARGINE [LANtus] 3 ML PEN SC (20:00)
== END 2017-10-17 15:55 | disposition home health service (06) | DRG 493 ==
LOC: E/R 06:37 → MS1 09:31
PROC: 0QSK04Z Reposition Left Fibula with Internal Fixation Device, Open Approach (ICD-10-PCS; principal; 2017-10-11 15:00)
PROC: 0QSH04Z Reposition Left Tibia with Internal Fixation Device, Open Approach (ICD-10-PCS; 2017-10-11 15:00)
DX: S82.842B Displaced bimalleolar fracture of left lower leg, initial encounter for open fracture type I or II (principal); K86.1 Other chronic pancreatitis; K70.30 Alcoholic cirrhosis of liver without ascites; E11.65 Type 2 diabetes mellitus with hyperglycemia; D64.9 Anemia, unspecified; S93.02XA Subluxation of left ankle joint, initial encounter; E03.9 Hypothyroidism, unspecified; W01.0XXA Fall on same level from slipping, tripping and stumbling without subsequent striking against object, initial encounter
CPT/HCPCS: 71045; 73590; 73600-52; 73610; 80048; 80069; 80076; 80202; 80307; 81003; 82550; 82553; 82607; 82728; 82746; 82962; 83036; 83540; 83735; 84100; 84443; 84484; 84703; 85025; 85610; 85730; 87040; 87070; 87075; 87102; 87116; 93005; 93306; 96374; 96375; 96376; 97110; 97116; 97163; 97530; 99285-25; G0378

== ENCOUNTER 2018-01-21 13:56 | Inpatient (IN) | payer MEDICARE, OTHER ==
[2018-01-21] MEDS: ONDANSETRON 4 MG INJ IV (18:19)
[2018-01-21] MEDS: CEFEPIME 2GM/50 ML (PMX) 50 ML IVPB (18:19)
[2018-01-21] MEDS: SODIUM CHLORIDE 0.9% 1L BAG IV* (18:19)
[2018-01-21] MEDS: morphine 4 MG/ML VIAL IV (18:19)
[2018-01-21 18:22] LABS: ADD MAN DIFF? NO
[2018-01-21 18:25] LABS: WHITE BLOOD COUNT 13.7 10^3/ul (4.8-10.8)
[2018-01-21 18:25] LABS: BASOPHILS % 0.1 % (0.0-2.0); EOSINOPHILS # 0.1 10^3/ul (0.0-0.5); EOSINOPHILS % 0.6 % (0.0-7.0); HEMATOCRIT 34.2 % (37.0-47.0); LYMPHOCYTES # 0.9 10^3/ul (0.8-2.9); LYMPHOCYTES % 6.6 % (15.0-51.0); MEAN CORPUSCULAR HEMOGLOBIN 35.1 pg (29.0-33.0); MEAN CORPUSCULAR HGB CONC 35.1 g/dl (32.0-37.0); MONOCYTES % 6.9 % (0.0-11.0); NEUTROPHIL # 11.7 10^3/ul (1.6-7.5); NEUTROPHILS % 85.3 % (39.0-77.0); PLATELET COUNT 177 10^3/UL (140-415); RED BLOOD COUNT 3.42 10^6/ul (4.20-5.40); RED CELL DISTRIBUTION WIDTH 13.3 % (11.5-14.5)
[2018-01-21 18:57] LABS: ALANINE AMINOTRANSFERASE 26 IU/L (13-69); ALBUMIN 3.4 g/dl (3.3-4.9); ALBUMIN/GLOBULIN RATIO 0.64; ALKALINE PHOSPHATASE 199 IU/L (42-121); ANION GAP 16 (8-16); ASPARTATE AMINO TRANSFERASE 50 IU/L (15-46); BILIRUBIN,INDIRECT 1.1 mg/dl (0-1.1); BILIRUBIN,TOTAL 1.1 mg/dl (0.2-1.3); BLOOD UREA NITROGEN 31 mg/dl (7-20); CALCIUM 8.7 mg/dl (8.4-10.2); CARBON DIOXIDE 18 mmol/L (21-31); CHLORIDE 101 mmol/L (97-110); CREATININE 1.89 mg/dl (0.44-1.00); GLUCOSE 249 mg/dl (70-220); POTASSIUM 4.8 mmol/L (3.5-5.1); SODIUM 130 mmol/L (135-144); TOTAL PROTEIN 8.7 g/dl (6.1-8.1)
[2018-01-21 19:07] LABS: LACTIC ACID 2.8 mmol/L (0.5-2.0)
[2018-01-21 19:08] LABS: TROPONIN-I < 0.012 ng/ml (0.00-0.12)
[2018-01-21] MEDS: VANCOMYCIN 1 GM (PMX) 250 ML IVPB (19:29)
[2018-01-21 20:15] LABS: INR 2.23; PARTIAL THROMBOPLASTIN TIME 46.8 Sec (25.0-35.0)
[2018-01-21 20:18] LABS: LACTIC ACID 1.8 mmol/L (0.5-2.0)
[2018-01-21 20:29] LABS: PROTIME 25.3 Sec (11.9-14.9)
[2018-01-21] MEDS ORDERED: ACETAMINOPHEN 325 MG TAB PO (21:00)
[2018-01-21] MEDS ORDERED: ONDANSETRON 4 MG INJ IV (21:00)
[2018-01-21] MEDS ORDERED: BISACODYL (EC) 5 MG TAB PO (21:00)
[2018-01-21] MEDS ORDERED: VANCOMYCIN IV PER PHARMACY XX (21:00)
[2018-01-21] MEDS ORDERED: DEXTROSE 50% 50 ML SYRINGE IV ×2 (21:15)
[2018-01-21] MEDS ORDERED: GLUCOSE GEL 15 GRAM TUBE PO ×2 (21:15)
[2018-01-21] MEDS ORDERED: GLUCOSE GEL 15 GRAM TUBE BUCCAL (21:15)
[2018-01-21] MEDS ORDERED: GLUCAGON 1 MG INJ IM (21:15)
[2018-01-21] MEDS: HYDROmorphONE 0.5 MG/0.5 ML SYG IV ×2 (21:29→23:45)
[2018-01-21] MEDS: NACL 0.9% 3 ML SYG IV (22:15)
[2018-01-21] MEDS: metroNIDAZOLE 500 MG/NS (PMX) 100 ML IVPB (22:19)
[2018-01-21] MEDS: DOCUSATE SODIUM 100 MG CAP PO (22:20)
[2018-01-21] MEDS: GABAPENTIN 300 MG CAP PO (22:20)
[2018-01-21] MEDS: RIFAXIMIN 550 MG TAB PO (22:24)
[2018-01-21] MEDS: PANTOPRAZOLE (EC) 40 MG TAB PO (22:24)
[2018-01-21] MEDS: INSULIN ASPART [NOVOLOG] 3 ML PEN SC (22:30)
[2018-01-21] MEDS: INSULIN GLARGINE [LANtus] 3 ML PEN SC (22:31)
[2018-01-21] MEDS: morphine 2 MG INJ IV (22:37)
[2018-01-21 23:17] LABS: LACTIC ACID 1.6 mmol/L (0.5-2.0)
[2018-01-21] MEDS: LEVOFLOXACIN 750MG/D5W (PMX) 150 ML IVPB (23:43)
[2018-01-22 01:53] LABS: LACTIC ACID 1.8 mmol/L (0.5-2.0)
[2018-01-22 01:55] LABS: ANION GAP 11 (8-16); BLOOD UREA NITROGEN 28 mg/dl (7-20); CALCIUM 7.2 mg/dl (8.4-10.2); CARBON DIOXIDE 18 mmol/L (21-31); CHLORIDE 109 mmol/L (97-110); GLUCOSE 190 mg/dl (70-220); POTASSIUM 3.5 mmol/L (3.5-5.1); SODIUM 134 mmol/L (135-144)
[2018-01-22] MEDS: ACCU-CHEK XX (01:55)
[2018-01-22] MEDS: HYDROmorphONE 0.5 MG/0.5 ML SYG IV ×5 (04:24→20:45)
[2018-01-22 05:16] LABS: ADD MAN DIFF? NO
[2018-01-22 05:27] LABS: BASOPHILS % 0.1 % (0.0-2.0); EOSINOPHILS # 0.2 10^3/ul (0.0-0.5); EOSINOPHILS % 1.4 % (0.0-7.0); HEMATOCRIT 25.3 % (37.0-47.0); LYMPHOCYTES # 0.8 10^3/ul (0.8-2.9); LYMPHOCYTES % 7.3 % (15.0-51.0); MEAN CORPUSCULAR HEMOGLOBIN 35.7 pg (29.0-33.0); MEAN CORPUSCULAR HGB CONC 35.6 g/dl (32.0-37.0); MEAN CORPUSCULAR VOLUME 100.4 fl (82.0-101.0); MEAN PLATELET VOLUME 10.9 fl (7.4-10.4); MONOCYTE # 1.1 10^3/ul (0.3-0.9); MONOCYTES % 10.2 % (0.0-11.0); NEUTROPHIL # 8.7 10^3/ul (1.6-7.5); NEUTROPHILS % 80.6 % (39.0-77.0); PLATELET COUNT 130 10^3/UL (140-415); RED BLOOD COUNT 2.52 10^6/ul (4.20-5.40); RED CELL DISTRIBUTION WIDTH 13.1 % (11.5-14.5)
[2018-01-22 05:27] LABS: WHITE BLOOD COUNT 10.8 10^3/ul (4.8-10.8)
[2018-01-22] MEDS: metroNIDAZOLE 500 MG/NS (PMX) 100 ML IVPB (05:31)
[2018-01-22] MEDS: PANTOPRAZOLE (EC) 40 MG TAB PO ×2 (05:32→17:17)
[2018-01-22 05:42] LABS: ALANINE AMINOTRANSFERASE 25 IU/L (13-69); ALBUMIN/GLOBULIN RATIO 0.52; ALKALINE PHOSPHATASE 121 IU/L (42-121); ANION GAP 11 (8-16); ASPARTATE AMINO TRANSFERASE 27 IU/L (15-46); BILIRUBIN,INDIRECT 0.4 mg/dl (0-1.1); BILIRUBIN,TOTAL 0.4 mg/dl (0.2-1.3); BLOOD UREA NITROGEN 26 mg/dl (7-20); CALCIUM 7.4 mg/dl (8.4-10.2); CARBON DIOXIDE 18 mmol/L (21-31); CHLORIDE 111 mmol/L (97-110); CHOL/HDL RATIO 2.4 RATIO; CHOLESTEROL 65 mg/dl (100-200); CREATININE 1.24 mg/dl (0.44-1.00); GLUCOSE 170 mg/dl (70-220); HDL CHOLESTEROL 27 mg/dl (37-92); LDL CHOLESTEROL,CALCULATED 26 mg/dl; MAGNESIUM 1.1 mg/dl (1.7-2.5); POTASSIUM 3.8 mmol/L (3.5-5.1); SODIUM 136 mmol/L (135-144); TOTAL PROTEIN 5.8 g/dl (6.1-8.1); TRIGLYCERIDES 60 mg/dl (0-149)
[2018-01-22 06:13] LABS: HEMOGLOBIN A1C 7.3 % (0-5.9)
[2018-01-22] MEDS: LEVOTHYROXINE 88 MCG TAB PO (06:51)
[2018-01-22] MEDS: [UNRECOGNIZED DRUG - REMARK] XX ×2 (08:00→15:45)
[2018-01-22 08:09] LABS: ETHANOL < 10.0 mg/dl
[2018-01-22] MEDS: INSULIN ASPART [NOVOLOG] 3 ML PEN SC ×4 (08:15→20:34)
[2018-01-22] MEDS: SPIRONOLACTONE 50 MG TAB PO (08:36)
[2018-01-22] MEDS: GABAPENTIN 300 MG CAP PO ×3 (08:37→20:30)
[2018-01-22] MEDS: DOCUSATE SODIUM 100 MG CAP PO ×2 (08:37→20:30)
[2018-01-22] MEDS: RIFAXIMIN 550 MG TAB PO ×2 (08:37→20:30)
[2018-01-22] MEDS: MAGNESIUM SULFATE 2 GM/50 ML 50 ML IVPB (08:47)
[2018-01-22 10:14] LABS: AMPHETAMINE/METHAMPHETAMINE Negative (NEGATIVE); BARBITURATES Negative (NEGATIVE); BENZODIAZEPINES Negative (NEGATIVE); CANNABINOIDS Negative (NEGATIVE); COCAINE Negative (NEGATIVE); OPIATES Positive (NEGATIVE)
[2018-01-22 11:45] LABS: ADD UMIC YES; UR ASCORBIC ACID NEGATIVE (NEGATIVE); UR BILIRUBIN (Dip) NEGATIVE (NEGATIVE); UR BLOOD (Dip) 3+ mg/dL (NEGATIVE); UR CLARITY CLEAR (CLEAR); UR COLOR YELLOW (YELLOW); UR GLUCOSE (Dip) 1+ mg/dL (NEGATIVE); UR KETONES (Dip) NEGATIVE (NEGATIVE); UR LEUKOCYTE ESTERASE (Dip) NEGATIVE Leu/ul (NEGATIVE); UR NITRITE (Dip) NEGATIVE (NEGATIVE); UR RBC 60 /HPF (0-5); UR SPECIFIC GRAVITY (Dip) 1.014 (1.003-1.030); UR SQUAMOUS EPITHELIAL CELL FEW /HPF (FEW); UR TOTAL PROTEIN (Dip) 3+ mg/dl (NEGATIVE); UR UROBILINOGEN (Dip) 1+ mg/dL (NEGATIVE); UR WBC 3 /HPF (0-5)
[2018-01-22 14:34] LABS: ADD MAN DIFF? NO
[2018-01-22 14:38] LABS: BASOPHILS % 0.2 % (0.0-2.0); EOSINOPHILS # 0.1 10^3/ul (0.0-0.5); EOSINOPHILS % 0.7 % (0.0-7.0); HEMATOCRIT 28.2 % (37.0-47.0); HEMOGLOBIN 9.7 g/dl (12.0-16.0); LYMPHOCYTES % 8.2 % (15.0-51.0); MEAN CORPUSCULAR HEMOGLOBIN 35.3 pg (29.0-33.0); MEAN CORPUSCULAR HGB CONC 34.4 g/dl (32.0-37.0); MEAN CORPUSCULAR VOLUME 102.5 fl (82.0-101.0); MEAN PLATELET VOLUME 10.9 fl (7.4-10.4); MONOCYTE # 1.4 10^3/ul (0.3-0.9); MONOCYTES % 11.3 % (0.0-11.0); NEUTROPHIL # 9.5 10^3/ul (1.6-7.5); NEUTROPHILS % 79.2 % (39.0-77.0); PLATELET COUNT 141 10^3/UL (140-415); RED BLOOD COUNT 2.75 10^6/ul (4.20-5.40); RED CELL DISTRIBUTION WIDTH 13.3 % (11.5-14.5)
[2018-01-22] MEDS ORDERED: VANCOMYCIN 750 MG in DEXTROSE 5% 150 ML IVPB (17:00)
[2018-01-22] MEDS: VANCOMYCIN 1 GM 250 ML IVPB (17:06)
[2018-01-22] MEDS: INSULIN GLARGINE [LANtus] 3 ML PEN SC (20:35)
[2018-01-23] MEDS: HYDROmorphONE 0.5 MG/0.5 ML SYG IV ×7 (01:29→23:22)
[2018-01-23] MEDS: ACCU-CHEK XX (01:30)
[2018-01-23 05:38] LABS: ADD MAN DIFF? NO
[2018-01-23] MEDS: PANTOPRAZOLE (EC) 40 MG TAB PO ×2 (05:38→17:34)
[2018-01-23 05:44] LABS: BASOPHILS % 0.3 % (0.0-2.0); EOSINOPHILS # 0.1 10^3/ul (0.0-0.5); EOSINOPHILS % 1.3 % (0.0-7.0); HEMATOCRIT 25.4 % (37.0-47.0); LYMPHOCYTES # 1.2 10^3/ul (0.8-2.9); MEAN CORPUSCULAR HEMOGLOBIN 35.3 pg (29.0-33.0); MEAN CORPUSCULAR HGB CONC 35.4 g/dl (32.0-37.0); MEAN CORPUSCULAR VOLUME 99.6 fl (82.0-101.0); MONOCYTE # 1.5 10^3/ul (0.3-0.9); MONOCYTES % 13.7 % (0.0-11.0); NEUTROPHIL # 7.8 10^3/ul (1.6-7.5); NEUTROPHILS % 73.2 % (39.0-77.0); PLATELET COUNT 124 10^3/UL (140-415); RED BLOOD COUNT 2.55 10^6/ul (4.20-5.40); RED CELL DISTRIBUTION WIDTH 13.3 % (11.5-14.5)
[2018-01-23 05:44] LABS: WHITE BLOOD COUNT 10.6 10^3/ul (4.8-10.8)
[2018-01-23] MEDS: LEVOTHYROXINE 100 MCG TAB PO (06:03)
[2018-01-23 06:06] LABS: INR 2.04; PROTIME 23.5 Sec (11.9-14.9); PT RATIO 1.8
[2018-01-23 06:17] LABS: ALANINE AMINOTRANSFERASE 25 IU/L (13-69); ALBUMIN/GLOBULIN RATIO 0.52; ALKALINE PHOSPHATASE 131 IU/L (42-121); ANION GAP 12 (8-16); ASPARTATE AMINO TRANSFERASE 35 IU/L (15-46); BILIRUBIN,INDIRECT 0.5 mg/dl (0-1.1); BILIRUBIN,TOTAL 0.5 mg/dl (0.2-1.3); BLOOD UREA NITROGEN 18 mg/dl (7-20); CARBON DIOXIDE 17 mmol/L (21-31); CHLORIDE 110 mmol/L (97-110); GLUCOSE 131 mg/dl (70-220); POTASSIUM 3.8 mmol/L (3.5-5.1); SODIUM 135 mmol/L (135-144); TOTAL PROTEIN 5.8 g/dl (6.1-8.1)
[2018-01-23] MEDS: [UNRECOGNIZED DRUG - REMARK] XX ×3 (08:00→16:00)
[2018-01-23] MEDS: INSULIN ASPART [NOVOLOG] 3 ML PEN SC ×4 (08:07→20:51)
[2018-01-23] MEDS: RIFAXIMIN 550 MG TAB PO ×2 (08:53→20:45)
[2018-01-23] MEDS: GABAPENTIN 300 MG CAP PO ×3 (08:53→20:45)
[2018-01-23] MEDS: SPIRONOLACTONE 50 MG TAB PO (08:53)
[2018-01-23] MEDS: DOCUSATE SODIUM 100 MG CAP PO ×2 (08:53→20:46)
[2018-01-23] MEDS: VANCOMYCIN 750 MG in DEXTROSE 5% 150 ML IVPB (14:15)
[2018-01-23] MEDS: LEVOFLOXACIN 750MG/D5W (PMX) 150 ML IVPB (16:52)
[2018-01-23] MEDS: INSULIN GLARGINE [LANtus] 3 ML PEN SC (20:50)
[2018-01-24] MEDS: ACCU-CHEK XX (02:00)
[2018-01-24] MEDS: VANCOMYCIN 750 MG in DEXTROSE 5% 150 ML IVPB (02:24)
[2018-01-24] MEDS: HYDROmorphONE 0.5 MG/0.5 ML SYG IV ×7 (03:03→23:36)
[2018-01-24] MEDS: PANTOPRAZOLE (EC) 40 MG TAB PO ×2 (06:07→17:17)
[2018-01-24] MEDS: LEVOTHYROXINE 100 MCG TAB PO ×2 (06:07→11:01)
[2018-01-24 06:14] LABS: ADD MAN DIFF? NO
[2018-01-24 06:22] LABS: WHITE BLOOD COUNT 10.1 10^3/ul (4.8-10.8)
[2018-01-24 06:22] LABS: BASOPHILS % 0.2 % (0.0-2.0); EOSINOPHILS # 0.3 10^3/ul (0.0-0.5); EOSINOPHILS % 2.9 % (0.0-7.0); HEMATOCRIT 26.3 % (37.0-47.0); HEMOGLOBIN 9.3 g/dl (12.0-16.0); LYMPHOCYTES # 1.4 10^3/ul (0.8-2.9); MEAN CORPUSCULAR HEMOGLOBIN 35.4 pg (29.0-33.0); MEAN CORPUSCULAR HGB CONC 35.4 g/dl (32.0-37.0); MEAN PLATELET VOLUME 10.9 fl (7.4-10.4); MONOCYTE # 1.5 10^3/ul (0.3-0.9); MONOCYTES % 14.4 % (0.0-11.0); NEUTROPHIL # 6.9 10^3/ul (1.6-7.5); NEUTROPHILS % 67.9 % (39.0-77.0); PLATELET COUNT 112 10^3/UL (140-415); RED BLOOD COUNT 2.63 10^6/ul (4.20-5.40); RED CELL DISTRIBUTION WIDTH 13.4 % (11.5-14.5)
[2018-01-24 06:43] LABS: ANION GAP 12 (8-16); BLOOD UREA NITROGEN 15 mg/dl (7-20); CALCIUM 8.1 mg/dl (8.4-10.2); CARBON DIOXIDE 19 mmol/L (21-31); CHLORIDE 109 mmol/L (97-110); CREATININE 0.92 mg/dl (0.44-1.00); GLUCOSE 111 mg/dl (70-220); POTASSIUM 3.7 mmol/L (3.5-5.1); SODIUM 136 mmol/L (135-144)
[2018-01-24 06:48] LABS: POSITIVE DIFF @See below
[2018-01-24] MEDS: RIFAMPIN 300 MG CAP PO (08:03)
[2018-01-24] MEDS: INSULIN ASPART [NOVOLOG] 3 ML PEN SC ×4 (08:07→20:48)
[2018-01-24] MEDS: CREON PO ×3 (08:24→17:17)
[2018-01-24] MEDS: DOCUSATE SODIUM 100 MG CAP PO ×2 (09:00→20:46)
[2018-01-24] MEDS: RIFAXIMIN 550 MG TAB PO ×2 (11:01→20:46)
[2018-01-24] MEDS: GABAPENTIN 300 MG CAP PO ×3 (11:01→20:46)
[2018-01-24] MEDS: SPIRONOLACTONE 50 MG TAB PO (11:01)
[2018-01-24 13:47] LABS: VANCOMYCIN,TROUGH 20.2 ug/ml (10.0-20.0)
[2018-01-24] MEDS: VANCOMYCIN 500MG/NS (PMX) 100 ML IVPB (19:52)
[2018-01-24] MEDS: INSULIN GLARGINE [LANtus] 3 ML PEN SC (20:48)
[2018-01-25] MEDS: ACCU-CHEK XX (02:00)
[2018-01-25] MEDS: HYDROmorphONE 0.5 MG/0.5 ML SYG IV ×4 (02:44→15:54)
[2018-01-25] MEDS: LEVOTHYROXINE 100 MCG TAB PO (06:30)
[2018-01-25] MEDS: PANTOPRAZOLE (EC) 40 MG TAB PO ×2 (06:30→17:25)
[2018-01-25 07:03] LABS: CREATININE 0.95 mg/dl (0.44-1.00)
[2018-01-25 07:03] LABS: BLOOD UREA NITROGEN 16 mg/dl (7-20)
[2018-01-25] MEDS: INSULIN ASPART [NOVOLOG] 3 ML PEN SC ×4 (07:59→20:32)
[2018-01-25] MEDS: RIFAXIMIN 550 MG TAB PO ×2 (08:45→20:11)
[2018-01-25] MEDS: GABAPENTIN 300 MG CAP PO ×3 (08:46→20:12)
[2018-01-25] MEDS: SPIRONOLACTONE 50 MG TAB PO (08:46)
[2018-01-25] MEDS: RIFAMPIN 300 MG CAP PO (08:46)
[2018-01-25] MEDS: CREON PO ×3 (08:47→17:25)
[2018-01-25] MEDS: DOCUSATE SODIUM 100 MG CAP PO ×2 (09:00→20:12)
[2018-01-25] MEDS: VANCOMYCIN 500MG/NS (PMX) 100 ML IVPB ×2 (10:27→20:11)
[2018-01-25] MEDS: FOLIC ACID 1 MG TAB PO (10:38)
[2018-01-25] MEDS: HYDROmorphONE 2 MG/ML SYG IV (12:51)
[2018-01-25] MEDS: HYDROCODONE/APAP (5/325) TAB PO (20:13)
[2018-01-25] MEDS: INSULIN GLARGINE [LANtus] 3 ML PEN SC (20:31)
[2018-01-25 22:28] LABS: ADD UMIC YES; UR ASCORBIC ACID NEGATIVE (NEGATIVE); UR BILIRUBIN (Dip) NEGATIVE (NEGATIVE); UR BLOOD (Dip) 3+ mg/dL (NEGATIVE); UR BUDDING YEAST MANY /HPF (NONE SEEN); UR CLARITY CLEAR (CLEAR); UR COLOR AMBER (YELLOW); UR GLUCOSE (Dip) 1+ mg/dL (NEGATIVE); UR KETONES (Dip) TRACE mg/dL (NEGATIVE); UR LEUKOCYTE ESTERASE (Dip) TRACE Leu/ul (NEGATIVE); UR MUCUS FEW /HPF (NONE SEEN); UR NITRITE (Dip) NEGATIVE (NEGATIVE); UR RBC 108 /HPF (0-5); UR SPECIFIC GRAVITY (Dip) 1.017 (1.003-1.030); UR SQUAMOUS EPITHELIAL CELL FEW /HPF (FEW); UR TOTAL PROTEIN (Dip) 3+ mg/dl (NEGATIVE); UR UROBILINOGEN (Dip) NEGATIVE (NEGATIVE); UR WBC 19 /HPF (0-5)
[2018-01-26] MEDS: HYDROCODONE/APAP (5/325) TAB PO ×4 (00:56→20:56)
[2018-01-26] MEDS: ACCU-CHEK XX (01:01)
[2018-01-26] MEDS: PANTOPRAZOLE (EC) 40 MG TAB PO ×2 (06:07→18:04)
[2018-01-26] MEDS: LEVOTHYROXINE 100 MCG TAB PO (06:07)
[2018-01-26 06:39] LABS: ABNORMAL IP MESSAGE 1; HEMATOCRIT 26.3 % (37.0-47.0); HEMOGLOBIN 9.5 g/dl (12.0-16.0); MEAN CORPUSCULAR HEMOGLOBIN 35.3 pg (29.0-33.0); MEAN CORPUSCULAR HGB CONC 36.1 g/dl (32.0-37.0); MEAN CORPUSCULAR VOLUME 97.8 fl (82.0-101.0); MEAN PLATELET VOLUME 11.8 fl (7.4-10.4); PLATELET COUNT 108 10^3/UL (140-415); RED BLOOD COUNT 2.69 10^6/ul (4.20-5.40); RED CELL DISTRIBUTION WIDTH 13.9 % (11.5-14.5)
[2018-01-26 06:39] LABS: WHITE BLOOD COUNT 8.2 10^3/ul (4.8-10.8)
[2018-01-26 06:58] LABS: ALANINE AMINOTRANSFERASE 17 IU/L (13-69); ALBUMIN 2.1 g/dl (3.3-4.9); ALBUMIN/GLOBULIN RATIO 0.52; ALKALINE PHOSPHATASE 137 IU/L (42-121); ANION GAP 17 (8-16); ASPARTATE AMINO TRANSFERASE 23 IU/L (15-46); BILIRUBIN,TOTAL 1.7 mg/dl (0.2-1.3); BLOOD UREA NITROGEN 15 mg/dl (7-20); CALCIUM 8.1 mg/dl (8.4-10.2); CARBON DIOXIDE 18 mmol/L (21-31); CHLORIDE 107 mmol/L (97-110); CREATININE 0.98 mg/dl (0.44-1.00); GLUCOSE 182 mg/dl (70-220); POTASSIUM 3.6 mmol/L (3.5-5.1); SODIUM 138 mmol/L (135-144); TOTAL PROTEIN 6.1 g/dl (6.1-8.1)
[2018-01-26 07:15] LABS: POSITIVE DIFF @See below
[2018-01-26 07:16] LABS: ADD MAN DIFF? YES
[2018-01-26 07:24] LABS: VANCOMYCIN,TROUGH 18.3 ug/ml (10.0-20.0)
[2018-01-26 07:53] LABS: ERYTHROCYTE SEDIMENTATION RATE 55 mm/Hr (0-30)
[2018-01-26] MEDS: RIFAMPIN 300 MG CAP PO ×2 (08:00→12:41)
[2018-01-26] MEDS: INSULIN ASPART [NOVOLOG] 3 ML PEN SC ×5 (08:15→21:01)
[2018-01-26] MEDS: CREON PO ×3 (08:15→18:04)
[2018-01-26] MEDS: VANCOMYCIN 500MG/NS (PMX) 100 ML IVPB (08:32)
[2018-01-26] MEDS: RIFAXIMIN 550 MG TAB PO ×2 (09:00→20:41)
[2018-01-26] MEDS: DOCUSATE SODIUM 100 MG CAP PO ×2 (09:00→20:41)
[2018-01-26] MEDS: GABAPENTIN 300 MG CAP PO ×3 (09:00→20:41)
[2018-01-26] MEDS: FOLIC ACID 1 MG TAB PO ×2 (09:00→12:41)
[2018-01-26] MEDS ORDERED: LACTATED RINGER'S 250 ML IV (09:30)
[2018-01-26] MEDS: LACTATED RINGER'S 500 ML IV (10:12)
[2018-01-26 10:24] LABS: IRON 59 ug/dl (35-150)
[2018-01-26 10:34] LABS: % IRON SATURATION 36 % SAT (22-52); TOTAL IRON BINDING CAPACITY 166 ug/dl (241-421)
[2018-01-26 10:37] LABS: ANISOCYTOSIS 2+ (0-0); BASOPHILS % (M) 1 % (0-2); BURR CELLS 2+ (0-0); EOSINOPHILS % (M) 3 % (0-7); LYMPHOCYTES #M 0.4 10^3/ul (0.8-2.9); LYMPHOCYTES % (M) 6 % (15-51); MONOCYTE #M 1.2 10^3/ul (0.3-0.9); MONOCYTES % (M) 15 % (0-11); OVALOCYTES 1+ (0-0); PLATELET ESTIMATE DECREASED; POIKILOCYTOSIS 1+ (0-0); SEGMENTED NEUTROPHILS (M) % 75 % (39-77); SMUDGE%M 18 % (0-0)
[2018-01-26] MEDS: REPAGLINIDE 1 MG TAB PO ×2 (12:41→18:04)
[2018-01-26] MEDS ORDERED: ACETAMINOPHEN 325 MG TAB PO (14:00)
[2018-01-26] MEDS: INSULIN GLARGINE [LANtus] 3 ML PEN SC (20:45)
[2018-01-27] MEDS: ACCU-CHEK XX (02:58)
[2018-01-27] MEDS: INSULIN ASPART [NOVOLOG] 3 ML PEN SC ×7 (03:22→20:37)
[2018-01-27] MEDS: HYDROCODONE/APAP (5/325) TAB PO ×3 (05:00→15:36)
[2018-01-27] MEDS: SPIRONOLACTONE 50 MG TAB PO (05:08)
[2018-01-27] MEDS: PANTOPRAZOLE (EC) 40 MG TAB PO ×2 (05:08→17:47)
[2018-01-27] MEDS: LEVOTHYROXINE 100 MCG TAB PO (07:05)
[2018-01-27] MEDS: DOCUSATE SODIUM 100 MG CAP PO ×2 (08:05→20:11)
[2018-01-27] MEDS: RIFAXIMIN 550 MG TAB PO ×2 (08:31→20:11)
[2018-01-27] MEDS: REPAGLINIDE 1 MG TAB PO ×3 (08:31→17:47)
[2018-01-27] MEDS: RIFAMPIN 300 MG CAP PO (08:33)
[2018-01-27] MEDS: FOLIC ACID 1 MG TAB PO (08:34)
[2018-01-27] MEDS: GABAPENTIN 300 MG CAP PO ×3 (08:34→20:11)
[2018-01-27] MEDS: CREON PO ×3 (08:35→17:47)
[2018-01-27] MEDS: VANCOMYCIN 750 MG in SOD CHLORIDE 0.9% 150 ML IVPB (08:56)
[2018-01-27] MEDS: HYDROCODONE/APAP (10/325) TAB PO (20:11)
[2018-01-27] MEDS: INSULIN GLARGINE [LANtus] 3 ML PEN SC (20:20)
[2018-01-27] MEDS ORDERED: VITAMIN A & D 5 GM OINT PACKET TOP (21:18)
[2018-01-27] MEDS: morphine 2 MG INJ IV (23:24)
[2018-01-28] MEDS: ACCU-CHEK XX (02:42)
[2018-01-28] MEDS: INSULIN ASPART [NOVOLOG] 3 ML PEN SC ×8 (03:45→20:33)
[2018-01-28 05:50] LABS: ABNORMAL IP MESSAGE 1; HEMATOCRIT 23.3 % (37.0-47.0); HEMOGLOBIN 8.3 g/dl (12.0-16.0); MEAN CORPUSCULAR HEMOGLOBIN 35.2 pg (29.0-33.0); MEAN CORPUSCULAR HGB CONC 35.6 g/dl (32.0-37.0); MEAN CORPUSCULAR VOLUME 98.7 fl (82.0-101.0); PLATELET COUNT 106 10^3/UL (140-415); RED BLOOD COUNT 2.36 10^6/ul (4.20-5.40); RED CELL DISTRIBUTION WIDTH 14.6 % (11.5-14.5)
[2018-01-28 05:50] LABS: WHITE BLOOD COUNT 9.3 10^3/ul (4.8-10.8)
[2018-01-28 05:56] LABS: ADD MAN DIFF? YES; POSITIVE DIFF @See below
[2018-01-28 06:15] LABS: ANION GAP 10 (8-16); BLOOD UREA NITROGEN 23 mg/dl (7-20); CALCIUM 7.8 mg/dl (8.4-10.2); CARBON DIOXIDE 18 mmol/L (21-31); CHLORIDE 110 mmol/L (97-110); GLUCOSE 360 mg/dl (70-220); POTASSIUM 3.4 mmol/L (3.5-5.1); SODIUM 135 mmol/L (135-144)
[2018-01-28] MEDS: LEVOTHYROXINE 100 MCG TAB PO (07:05)
[2018-01-28] MEDS: PANTOPRAZOLE (EC) 40 MG TAB PO ×2 (07:05→17:43)
[2018-01-28] MEDS: SPIRONOLACTONE 50 MG TAB PO (07:05)
[2018-01-28] MEDS: RIFAMPIN 300 MG CAP PO (08:34)
[2018-01-28] MEDS: RIFAXIMIN 550 MG TAB PO ×2 (08:34→20:27)
[2018-01-28] MEDS: POTASSIUM CHLORIDE (SR) 20 MEQ TAB PO (08:34)
[2018-01-28] MEDS: FOLIC ACID 1 MG TAB PO (08:34)
[2018-01-28] MEDS: REPAGLINIDE 1 MG TAB PO ×3 (08:34→17:43)
[2018-01-28] MEDS: CREON PO ×3 (08:35→17:43)
[2018-01-28] MEDS: DOCUSATE SODIUM 100 MG CAP PO ×2 (08:35→20:27)
[2018-01-28] MEDS: GABAPENTIN 300 MG CAP PO ×3 (08:35→20:27)
[2018-01-28] MEDS: VANCOMYCIN 750 MG in SOD CHLORIDE 0.9% 150 ML IVPB (08:38)
[2018-01-28] MEDS: HYDROCODONE/APAP (10/325) TAB PO ×3 (08:59→21:15)
[2018-01-28 09:29] LABS: ANISOCYTOSIS 3+ (0-0); BAND NEUTROPHILS #M 0.3 10^3/ul (0.0-0.6); BAND NEUTROPHILS % (M) 4 % (0-4); EOSINOPHILS % (M) 5 % (0-7); LYMPHOCYTES #M 1.5 10^3/ul (0.8-2.9); LYMPHOCYTES % (M) 17 % (15-51); METAMYELOCYTES %M 1 % (0-0); MONOCYTE #M 0.6 10^3/ul (0.3-0.9); MONOCYTES % (M) 7 % (0-11); PLATELET ESTIMATE DECREASED; POIKILOCYTOSIS 3+ (0-0); SEG NEUT #M 6.1 10^3/ul (1.6-7.5); SEGMENTED NEUTROPHILS (M) % 65 % (39-77); SMUDGE%M 1 % (0-0)
[2018-01-28] MEDS: LIDOCAINE 1% (MPF) 5 ML VIAL SC (15:30)
[2018-01-28] MEDS: INSULIN GLARGINE [LANtus] 3 ML PEN SC (20:33)
[2018-01-29] MEDS: HYDROCODONE/APAP (10/325) TAB PO ×2 (01:01→06:00)
[2018-01-29] MEDS: ACCU-CHEK XX (01:56)
[2018-01-29] MEDS: INSULIN ASPART [NOVOLOG] 3 ML PEN SC ×7 (02:47→17:56)
[2018-01-29] MEDS: SPIRONOLACTONE 50 MG TAB PO (06:00)
[2018-01-29] MEDS: PANTOPRAZOLE (EC) 40 MG TAB PO ×2 (06:00→18:22)
[2018-01-29] MEDS: LEVOTHYROXINE 100 MCG TAB PO (06:00)
[2018-01-29 07:54] LABS: WHITE BLOOD COUNT 8.9 10^3/ul (4.8-10.8)
[2018-01-29 07:54] LABS: ABNORMAL IP MESSAGE 1; HEMATOCRIT 23.5 % (37.0-47.0); HEMOGLOBIN 8.3 g/dl (12.0-16.0); MEAN CORPUSCULAR HEMOGLOBIN 35.5 pg (29.0-33.0); MEAN CORPUSCULAR HGB CONC 35.3 g/dl (32.0-37.0); MEAN CORPUSCULAR VOLUME 100.4 fl (82.0-101.0); PLATELET COUNT 89 10^3/UL (140-415); RED BLOOD COUNT 2.34 10^6/ul (4.20-5.40); RED CELL DISTRIBUTION WIDTH 14.9 % (11.5-14.5)
[2018-01-29 08:05] LABS: ADD MAN DIFF? YES; POSITIVE DIFF @See below
[2018-01-29] MEDS: REPAGLINIDE 1 MG TAB PO ×3 (08:05→18:22)
[2018-01-29] MEDS: GABAPENTIN 300 MG CAP PO ×2 (08:05→12:42)
[2018-01-29] MEDS: DOCUSATE SODIUM 100 MG CAP PO (08:05)
[2018-01-29] MEDS: RIFAMPIN 300 MG CAP PO (08:05)
[2018-01-29] MEDS: RIFAXIMIN 550 MG TAB PO (08:05)
[2018-01-29] MEDS: FOLIC ACID 1 MG TAB PO (08:05)
[2018-01-29] MEDS: CREON PO ×3 (08:15→17:44)
[2018-01-29 08:18] LABS: ANION GAP 11 (8-16); BLOOD UREA NITROGEN 23 mg/dl (7-20); CALCIUM 7.8 mg/dl (8.4-10.2); CARBON DIOXIDE 18 mmol/L (21-31); CHLORIDE 110 mmol/L (97-110); CREATININE 1.21 mg/dl (0.44-1.00); GLUCOSE 152 mg/dl (70-220); SODIUM 135 mmol/L (135-144)
[2018-01-29 08:19] LABS: VANCOMYCIN,TROUGH 15.5 ug/ml (10.0-20.0)
[2018-01-29] MEDS: VANCOMYCIN 750 MG in SOD CHLORIDE 0.9% 150 ML IVPB (09:18)
[2018-01-29 10:17] LABS: ANISOCYTOSIS 3+ (0-0); BAND NEUTROPHILS % (M) 1 % (0-4); BASOPHILS % (M) 1 % (0-2); BURR CELLS 3+ (0-0); EOSINOPHILS % (M) 4 % (0-7); GIANT THROMBO% (M) 1 % (0-0); LYMPHOCYTES #M 2.3 10^3/ul (0.8-2.9); LYMPHOCYTES % (M) 26 % (15-51); MONOCYTE #M 0.7 10^3/ul (0.3-0.9); MONOCYTES % (M) 8 % (0-11); PLATELET ESTIMATE DECREASED; POIKILOCYTOSIS 3+ (0-0); POLYCHROMASIA 1+ (0-0); REACTIVE LYMPHOCYTES% (M) 1 % (0-0); SEG NEUT #M 5.3 10^3/ul (1.6-7.5); SEGMENTED NEUTROPHILS (M) % 59 % (39-77); SMUDGE%M 7 % (0-0)
[2018-01-29] MEDS: morphine 2 MG INJ IV ×2 (10:49→15:30)
[2018-01-29] MEDS ORDERED: OXYCODONE/ACETAMINOPHEN (5/325) TAB PO (11:30)
[2018-01-29] MEDS: OXYCODONE/ACETAMINOPHEN (5/325) TAB PO (12:42)
[2018-01-29] MEDS ORDERED: HYDROmorphONE 2 MG TAB PO (18:00)
[2018-01-29] MEDS: HYDROmorphONE 0.5 MG/0.5 ML SYG IV (18:22)
[2018-01-30] MEDS ORDERED: VANCOMYCIN 500MG/NS (PMX) 100 ML IVPB (09:00)
== END 2018-01-29 20:02 | DRG 603 ==
LOC: E/R 13:56 → MS2 20:15
DX: L03.116 Cellulitis of left lower limb (principal); K86.1 Other chronic pancreatitis; D68.9 Coagulation defect, unspecified; K70.30 Alcoholic cirrhosis of liver without ascites; F17.200 Nicotine dependence, unspecified, uncomplicated; E11.9 Type 2 diabetes mellitus without complications; E03.9 Hypothyroidism, unspecified; D64.9 Anemia, unspecified; M81.0 Age-related osteoporosis without current pathological fracture
CPT/HCPCS: 36569; 71045; 73610; 76937; 78315; 80048; 80053; 80061; 80202; 80306; 80307; 81001; 82565; 82728; 82962; 83036; 83540; 83605; 83735; 84443; 84484; 84520; 85025; 85610; 85651; 85730; 87040; 87070; 87081; 87086; 93005; 97162; A9503

== ENCOUNTER 2018-02-16 01:57 | Inpatient (IN) | payer MEDICARE, OTHER ==
[2018-02-16 02:47] LABS: URINE PH (Dip) POC 5.5 (5.0-8.5)
[2018-02-16 02:47] LABS: URINE BLOOD (Dip) POC 2+ (NEGATIVE); URINE GLUCOSE (Dip) POC Negative (NEGATIVE); URINE KETONES (Dip) POC Trace (NEGATIVE); URINE LEUKOCYTE EST (Dip) POC Negative (NEGATIVE); URINE NITRITE (Dip) POC Negative (NEGATIVE); URINE TOTAL PROTEIN POC 2+ (NEGATIVE)
[2018-02-16 03:04] LABS: ADD MAN DIFF? NO
[2018-02-16 03:07] LABS: BASOPHILS % 0.6 % (0.0-2.0); EOSINOPHILS # 0.2 10^3/ul (0.0-0.5); EOSINOPHILS % 2.5 % (0.0-7.0); HEMOGLOBIN 8.6 g/dl (12.0-16.0); LYMPHOCYTES % 14.6 % (15.0-51.0); MEAN CORPUSCULAR HEMOGLOBIN 34.8 pg (29.0-33.0); MEAN CORPUSCULAR HGB CONC 34.4 g/dl (32.0-37.0); MEAN CORPUSCULAR VOLUME 101.2 fl (82.0-101.0); MONOCYTE # 0.7 10^3/ul (0.3-0.9); MONOCYTES % 10.3 % (0.0-11.0); NEUTROPHIL # 4.9 10^3/ul (1.6-7.5); NEUTROPHILS % 71.7 % (39.0-77.0); PLATELET COUNT 119 10^3/UL (140-415); RED BLOOD COUNT 2.47 10^6/ul (4.20-5.40); RED CELL DISTRIBUTION WIDTH 15.3 % (11.5-14.5)
[2018-02-16 03:07] LABS: WHITE BLOOD COUNT 6.8 10^3/ul (4.8-10.8)
[2018-02-16] MEDS: SOD CHLORIDE 0.9% 1,000 ML IV ×2 (03:17→05:47)
[2018-02-16 03:27] LABS: LACTIC ACID 1.2 mmol/L (0.5-2.0)
[2018-02-16 03:28] LABS: INR 1.69; PROTIME 20.2 Sec (11.9-14.9); PT RATIO 1.6
[2018-02-16 03:29] LABS: PARTIAL THROMBOPLASTIN TIME 47.3 Sec (25.0-35.0)
[2018-02-16 03:30] LABS: ALANINE AMINOTRANSFERASE 21 IU/L (13-69); ALBUMIN 2.2 g/dl (3.3-4.9); ALBUMIN/GLOBULIN RATIO 0.46; ALKALINE PHOSPHATASE 121 IU/L (42-121); ANION GAP 14 (8-16); ASPARTATE AMINO TRANSFERASE 36 IU/L (15-46); BILIRUBIN,INDIRECT 0.9 mg/dl (0-1.1); BILIRUBIN,TOTAL 1.4 mg/dl (0.2-1.3); BLOOD UREA NITROGEN 32 mg/dl (7-20); CALCIUM 8.1 mg/dl (8.4-10.2); CARBON DIOXIDE 17 mmol/L (21-31); CHLORIDE 116 mmol/L (97-110); CREATININE 2.36 mg/dl (0.44-1.00); GLUCOSE 102 mg/dl (70-220); SODIUM 144 mmol/L (135-144); TOTAL PROTEIN 6.9 g/dl (6.1-8.1)
[2018-02-16 03:42] LABS: OPIATES Positive (NEGATIVE)
[2018-02-16 03:44] LABS: ADD UMIC YES; UR ASCORBIC ACID 20 mg/dL (NEGATIVE); UR BACTERIA FEW /HPF (NONE SEEN); UR BILIRUBIN (Dip) NEGATIVE (NEGATIVE); UR BLOOD (Dip) 3+ mg/dL (NEGATIVE); UR BUDDING YEAST FEW /HPF (NONE SEEN); UR CLARITY CLEAR (CLEAR); UR COLOR AMBER (YELLOW); UR GLUCOSE (Dip) NEGATIVE (NEGATIVE); UR KETONES (Dip) NEGATIVE (NEGATIVE); UR LEUKOCYTE ESTERASE (Dip) NEGATIVE Leu/ul (NEGATIVE); UR NITRITE (Dip) NEGATIVE (NEGATIVE); UR RBC 52 /HPF (0-5); UR SPECIFIC GRAVITY (Dip) 1.013 (1.003-1.030); UR TOTAL PROTEIN (Dip) 2+ mg/dl (NEGATIVE); UR UROBILINOGEN (Dip) NEGATIVE (NEGATIVE); UR WBC 25 /HPF (0-5)
[2018-02-16 03:46] LABS: ETHANOL < 10.0 mg/dl; SALICYLATE < 1.0 mg/dl (5.0-30.0); TROPONIN-I < 0.012 ng/ml (0.00-0.12)
[2018-02-16 03:47] LABS: AMPHETAMINE/METHAMPHETAMINE Negative (NEGATIVE); BARBITURATES Negative (NEGATIVE); BENZODIAZEPINES Negative (NEGATIVE); CANNABINOIDS Negative (NEGATIVE); COCAINE Negative (NEGATIVE)
[2018-02-16 04:29] LABS: FREE THYROXINE INDEX (Calc) 3.78 ug/ml (0.65-3.89)
[2018-02-16 04:31] LABS: T3 UPTAKE 51.1 % (23.5-40.5); T4 (THYROXINE) 7.4 ug/dl (5.5-11.0)
[2018-02-16] MEDS ORDERED: NACL 0.9% 3 ML SYG IV (06:00)
[2018-02-16] MEDS ORDERED: ALBUTEROL/IPRATROPIUM (NEB) 3 ML AMP HHN (06:00)
[2018-02-16] MEDS ORDERED: morphine 2 MG INJ IV (06:00)
[2018-02-16] MEDS: POTASSIUM CHLORIDE 100 ML IVPB ×2 (07:25→10:30)
[2018-02-16 07:51] LABS: AMMONIA 114 umol/l (9-30)
[2018-02-16] MEDS: CIPROFLOXACIN 400MG/D5W 200 ML IVPB (09:28)
[2018-02-16] MEDS: RIFAXIMIN 550 MG TAB PO ×2 (11:00→21:35)
[2018-02-16] MEDS: LACTULOSE 30ML CUP PO ×2 (12:00→17:28)
[2018-02-16] MEDS: LACTULOSE ENEMA 1,000 ML BTL PR (12:08)
[2018-02-16] MEDS: LIDOCAINE 1% (MDV) 10 ML INJ (14:58)
[2018-02-16] MEDS ORDERED: DEXTROSE 50% 50 ML SYRINGE IV ×2 (15:00)
[2018-02-16] MEDS ORDERED: GLUCAGON 1 MG INJ IM (15:00)
[2018-02-16] MEDS ORDERED: GLUCOSE GEL 15 GRAM TUBE BUCCAL (15:00)
[2018-02-16] MEDS ORDERED: GLUCOSE GEL 15 GRAM TUBE PO ×2 (15:00)
[2018-02-16] MEDS: ALBUMIN HUMAN 25% 100 ML IV (17:27)
[2018-02-16 17:34] LABS: VANCOMYCIN,RANDOM 19.8 ug/ml
[2018-02-16] MEDS: INSULIN ASPART [NOVOLOG] 3 ML PEN SC ×2 (18:00→21:36)
[2018-02-16 18:36] LABS: FOLATE > 20.0 ng/ml (2.8-20.0)
[2018-02-16 23:03] LABS: SODIUM,URINE RANDOM 35 mmol/L (30-90)
[2018-02-16 23:07] LABS: CREATININE,URINE RANDOM 57.38 mg/dl (20-320); PROTEIN/CREAT RATIO 2.49 RATIO
[2018-02-17] MEDS: LACTULOSE 30ML CUP PO ×5 (00:31→23:59)
[2018-02-17] MEDS: ALBUMIN HUMAN 25% 100 ML IV ×4 (00:32→21:45)
[2018-02-17] MEDS: ACETAMINOPHEN 325 MG TAB PO (03:23)
[2018-02-17 06:56] LABS: ALANINE AMINOTRANSFERASE 24 IU/L (13-69); ALBUMIN 2.2 g/dl (3.3-4.9); ALBUMIN/GLOBULIN RATIO 0.59; ALKALINE PHOSPHATASE 88 IU/L (42-121); ANION GAP 11 (8-16); ASPARTATE AMINO TRANSFERASE 30 IU/L (15-46); BILIRUBIN,INDIRECT 0.6 mg/dl (0-1.1); BILIRUBIN,TOTAL 0.6 mg/dl (0.2-1.3); BLOOD UREA NITROGEN 29 mg/dl (7-20); CALCIUM 8.1 mg/dl (8.4-10.2); CARBON DIOXIDE 17 mmol/L (21-31); CHLORIDE 119 mmol/L (97-110); CREATININE 2.13 mg/dl (0.44-1.00); GLUCOSE 229 mg/dl (70-220); MAGNESIUM 1.8 mg/dl (1.7-2.5); PHOSPHORUS 5.2 mg/dl (2.5-4.9); POTASSIUM 3.3 mmol/L (3.5-5.1); SODIUM 144 mmol/L (135-144); TOTAL PROTEIN 5.9 g/dl (6.1-8.1)
[2018-02-17 06:56] LABS: URIC ACID 8.6 mg/dl (3.1-7.9)
[2018-02-17 07:18] LABS: ABNORMAL IP MESSAGE 1; HEMATOCRIT 21.6 % (37.0-47.0); HEMOGLOBIN 7.5 g/dl (12.0-16.0); MEAN CORPUSCULAR HGB CONC 34.7 g/dl (32.0-37.0); MEAN CORPUSCULAR VOLUME 100.9 fl (82.0-101.0); MEAN PLATELET VOLUME 11.7 fl (7.4-10.4); PLATELET COUNT 99 10^3/UL (140-415); RED BLOOD COUNT 2.14 10^6/ul (4.20-5.40); RED CELL DISTRIBUTION WIDTH 15.5 % (11.5-14.5)
[2018-02-17 07:18] LABS: WHITE BLOOD COUNT 6.1 10^3/ul (4.8-10.8)
[2018-02-17 07:19] LABS: ADD MAN DIFF? YES; POSITIVE DIFF @See below
[2018-02-17] MEDS: RIFAXIMIN 550 MG TAB PO ×2 (08:08→21:44)
[2018-02-17] MEDS: INSULIN ASPART [NOVOLOG] 3 ML PEN SC ×4 (08:17→21:42)
[2018-02-17 09:03] LABS: ANISOCYTOSIS 3+ (0-0); BAND NEUTROPHILS #M 0.3 10^3/ul (0.0-0.6); BAND NEUTROPHILS % (M) 6 % (0-4); BASOPHILS % (M) 1 % (0-2); EOSINOPHILS % (M) 9 % (0-7); LYMPHOCYTES #M 0.4 10^3/ul (0.8-2.9); LYMPHOCYTES % (M) 8 % (15-51); MONOCYTE #M 0.3 10^3/ul (0.3-0.9); MONOCYTES % (M) 6 % (0-11); PLATELET ESTIMATE DECREASED; PROMYELOCYTES % (M) 1 % (0-0); SEG NEUT #M 4.2 10^3/ul (1.6-7.5); SEGMENTED NEUTROPHILS (M) % 69 % (39-77); SMUDGE%M 25 % (0-0)
[2018-02-17] MEDS: POTASSIUM CHLORIDE 100 ML IVPB ×2 (11:50→13:58)
[2018-02-17 13:04] LABS: AADO2 Arterial 12.5 mmHg (7.0-24.0); Allen Test ACCEPTAB; Arterial Base Excess -9.3 mmol/L (-3.0-3); Arterial COHb 0.3 % (0.0-3.0); Arterial Fraction of Oxyhgb 96.4 % (93.0-99.0); Arterial HCO3 15.1 mmol/L (22.0-26.0); Arterial MetHb 0.3 % (0.0-1.5); Arterial Total Hemglobin 8.9 g/dl (12.0-18.0); Arterial pCO2 27.7 mmhg (35-45); MODE ROOM AIR; Site Right Radial
[2018-02-17] MEDS: CITRIC ACID/SODIUM CITRATE 15 ML CUP PO ×2 (14:00→21:43)
[2018-02-17] MEDS: morphine 2 MG INJ IV ×2 (16:00→22:17)
[2018-02-17] MEDS ORDERED: RIFAXIMIN 550 MG TAB PO (21:00)
[2018-02-17] MEDS: DOXYCYCLINE 100 MG TAB PO (21:43)
[2018-02-18] MEDS: morphine 2 MG INJ IV ×3 (02:39→14:42)
[2018-02-18] MEDS: PANTOPRAZOLE (EC) 40 MG TAB PO ×2 (06:12→17:36)
[2018-02-18] MEDS: LACTULOSE 30ML CUP PO ×4 (06:12→23:20)
[2018-02-18] MEDS: ALBUMIN HUMAN 25% 100 ML IV ×2 (06:12→14:00)
[2018-02-18] MEDS: LEVOTHYROXINE 100 MCG TAB PO (06:13)
[2018-02-18 07:19] LABS: ANION GAP 13 (8-16); BLOOD UREA NITROGEN 28 mg/dl (7-20); CALCIUM 8.7 mg/dl (8.4-10.2); CARBON DIOXIDE 19 mmol/L (21-31); CHLORIDE 121 mmol/L (97-110); CREATININE 1.89 mg/dl (0.44-1.00); GLUCOSE 112 mg/dl (70-220); POTASSIUM 3.4 mmol/L (3.5-5.1); SODIUM 150 mmol/L (135-144)
[2018-02-18] MEDS: INSULIN ASPART [NOVOLOG] 3 ML PEN SC ×4 (07:57→20:59)
[2018-02-18] MEDS ORDERED: NON-FORMULARY/PATIENT OWN MED (Lipase-Protease-Amylase* (Creon DR* 6,000) 1 CAP) PO (08:15)
[2018-02-18] MEDS: POTASSIUM CHLORIDE (SR) 20 MEQ TAB PO (08:20)
[2018-02-18] MEDS: CITRIC ACID/SODIUM CITRATE 15 ML CUP PO ×2 (08:20→20:57)
[2018-02-18] MEDS: RIFAXIMIN 550 MG TAB PO ×2 (08:21→20:57)
[2018-02-18] MEDS: DOXYCYCLINE 100 MG TAB PO ×2 (08:21→20:57)
[2018-02-18] MEDS: CREON (12k-38k-60k) 1 CAP PO ×3 (08:21→17:36)
[2018-02-18] MEDS: FOLIC ACID 1 MG TAB PO (08:21)
[2018-02-18] MEDS: DEXTROSE 5% 1,000 ML IV (12:12)
[2018-02-18] MEDS: GABAPENTIN 100 MG CAP PO ×2 (13:04→20:57)
[2018-02-18] MEDS: ONDANSETRON 4 MG INJ IV (13:04)
[2018-02-18] MEDS: morphine LIQ (10 MG/5 ML) CUP PO (23:20)
[2018-02-19] MEDS: PANTOPRAZOLE (EC) 40 MG TAB PO ×2 (05:44→17:45)
[2018-02-19] MEDS: LACTULOSE 30ML CUP PO ×3 (05:44→17:41)
[2018-02-19] MEDS: DEXTROSE 5% 1,000 ML IV (05:44)
[2018-02-19] MEDS: LEVOTHYROXINE 100 MCG TAB PO (05:44)
[2018-02-19] MEDS: morphine LIQ (10 MG/5 ML) CUP PO (06:14)
[2018-02-19 06:48] LABS: ANION GAP 13 (8-16); BLOOD UREA NITROGEN 30 mg/dl (7-20); CALCIUM 8.1 mg/dl (8.4-10.2); CARBON DIOXIDE 18 mmol/L (21-31); CHLORIDE 116 mmol/L (97-110); CREATININE 1.81 mg/dl (0.44-1.00); GLUCOSE 240 mg/dl (70-220); MAGNESIUM 1.8 mg/dl (1.7-2.5); PHOSPHORUS 5.2 mg/dl (2.5-4.9); SODIUM 143 mmol/L (135-144)
[2018-02-19] MEDS: CREON (12k-38k-60k) 1 CAP PO ×3 (07:46→17:45)
[2018-02-19] MEDS: INSULIN ASPART [NOVOLOG] 3 ML PEN SC ×4 (08:04→20:32)
[2018-02-19] MEDS: DOXYCYCLINE 100 MG TAB PO (08:09)
[2018-02-19] MEDS: CITRIC ACID/SODIUM CITRATE 15 ML CUP PO ×2 (08:09→20:24)
[2018-02-19] MEDS: GABAPENTIN 100 MG CAP PO ×3 (08:09→20:27)
[2018-02-19] MEDS: RIFAXIMIN 550 MG TAB PO ×2 (08:09→20:29)
[2018-02-19] MEDS: FOLIC ACID 1 MG TAB PO (08:09)
[2018-02-19] MEDS: INSULIN GLARGINE [LANtus] 3 ML PEN SC (20:26)
== END 2018-02-19 22:50 | DRG 689 ==
LOC: MS2 07:45 → E/R 01:57 → MS2 05:46
PROC: 0W9G3ZZ Drainage of Peritoneal Cavity, Percutaneous Approach (ICD-10-PCS; principal; 2018-02-16)
DX: N39.0 Urinary tract infection, site not specified (principal); G93.41 Metabolic encephalopathy; N17.0 Acute kidney failure with tubular necrosis; E87.2 Acidosis; K86.0 Alcohol-induced chronic pancreatitis; E87.0 Hyperosmolality and hypernatremia; L03.116 Cellulitis of left lower limb; K72.90 Hepatic failure, unspecified without coma; K70.31 Alcoholic cirrhosis of liver with ascites; E03.9 Hypothyroidism, unspecified; F10.20 Alcohol dependence, uncomplicated; Z87.891 Personal history of nicotine dependence; D53.9 Nutritional anemia, unspecified; E87.6 Hypokalemia; E11.22 Type 2 diabetes mellitus with diabetic chronic kidney disease; N18.9 Chronic kidney disease, unspecified; T50.1X5A Adverse effect of loop [high-ceiling] diuretics, initial encounter
CPT/HCPCS: 36415; 36600; 70450; 71045; 76775; 80048; 80053; 80202; 80306; 80307; 81001; 81003; 82140; 82540; 82570; 82607; 82746; 82803; 82962; 83605; 83735; 84100; 84300; 84436; 84479; 84484; 84560; 85025; 85610; 85730; 87070; 87081; 87086; 87102; 87116; 89190; 92526; 92610; 93005; 96361; 96365; 97162; 99285-25

== ENCOUNTER 2018-02-19 23:14 | Inpatient (IN) | payer MEDICARE, OTHER ==
[2018-02-20] MEDS: morphine LIQ (10 MG/5 ML) CUP PO (01:50)
[2018-02-20] MEDS ORDERED: ACETAMINOPHEN 325 MG TAB PO (02:30)
[2018-02-20] MEDS ORDERED: GLUCOSE GEL 15 GRAM TUBE BUCCAL (02:30)
[2018-02-20] MEDS ORDERED: DEXTROSE 50% 50 ML SYRINGE IV ×2 (02:30)
[2018-02-20] MEDS ORDERED: GLUCOSE GEL 15 GRAM TUBE PO ×2 (02:30)
[2018-02-20] MEDS ORDERED: GLUCAGON 1 MG INJ IM (02:30)
[2018-02-20] MEDS ORDERED: ONDANSETRON 4 MG INJ IV (02:30)
[2018-02-20 03:20] LABS: ADD UMIC YES; UR ASCORBIC ACID 40 mg/dL (NEGATIVE); UR BACTERIA FEW /HPF (NONE SEEN); UR BILIRUBIN (Dip) NEGATIVE (NEGATIVE); UR BLOOD (Dip) 3+ mg/dL (NEGATIVE); UR BUDDING YEAST MODERATE /HPF (NONE SEEN); UR CLARITY SLIGHTLY CLOUDY (CLEAR); UR COLOR YELLOW (YELLOW); UR GLUCOSE (Dip) NEGATIVE (NEGATIVE); UR KETONES (Dip) NEGATIVE (NEGATIVE); UR LEUKOCYTE ESTERASE (Dip) NEGATIVE Leu/ul (NEGATIVE); UR MUCUS FEW /HPF (NONE SEEN); UR NITRITE (Dip) NEGATIVE (NEGATIVE); UR RBC > 182 /HPF (0-5); UR SPECIFIC GRAVITY (Dip) 1.018 (1.003-1.030); UR SQUAMOUS EPITHELIAL CELL FEW /HPF (FEW); UR TOTAL PROTEIN (Dip) 3+ mg/dl (NEGATIVE); UR UROBILINOGEN (Dip) NEGATIVE (NEGATIVE); UR WBC 8 /HPF (0-5)
[2018-02-20] MEDS: ALBUTEROL/IPRATROPIUM (NEB) 3 ML AMP HHN (03:41)
[2018-02-20] MEDS ORDERED: ALBUTEROL/IPRATROPIUM (NEB) 3 ML AMP HHN (06:00)
[2018-02-20] MEDS: PANTOPRAZOLE (EC) 40 MG TAB PO ×2 (06:27→17:58)
[2018-02-20] MEDS: LEVOTHYROXINE 100 MCG TAB PO (06:28)
[2018-02-20] MEDS: LACTULOSE 30ML CUP PO ×4 (06:28→17:58)
[2018-02-20 07:30] LABS: ADD MAN DIFF? NO
[2018-02-20 07:34] LABS: WHITE BLOOD COUNT 6.9 10^3/ul (4.8-10.8)
[2018-02-20 07:34] LABS: ABNORMAL IP MESSAGE 1; BASOPHIL # 0.1 10^3/ul (0.0-0.1); BASOPHILS % 0.7 % (0.0-2.0); EOSINOPHILS # 0.5 10^3/ul (0.0-0.5); EOSINOPHILS % 7.6 % (0.0-7.0); HEMATOCRIT 22.3 % (37.0-47.0); HEMOGLOBIN 7.4 g/dl (12.0-16.0); LYMPHOCYTES # 1.9 10^3/ul (0.8-2.9); LYMPHOCYTES % 27.3 % (15.0-51.0); MEAN CORPUSCULAR HEMOGLOBIN 34.9 pg (29.0-33.0); MEAN CORPUSCULAR HGB CONC 33.2 g/dl (32.0-37.0); MEAN CORPUSCULAR VOLUME 105.2 fl (82.0-101.0); MEAN PLATELET VOLUME 12.4 fl (7.4-10.4); MONOCYTE # 0.9 10^3/ul (0.3-0.9); MONOCYTES % 12.8 % (0.0-11.0); NEUTROPHIL # 3.5 10^3/ul (1.6-7.5); NEUTROPHILS % 51.3 % (39.0-77.0); PLATELET COUNT 65 10^3/UL (140-415); RED BLOOD COUNT 2.12 10^6/ul (4.20-5.40); RED CELL DISTRIBUTION WIDTH 15.9 % (11.5-14.5)
[2018-02-20 07:48] LABS: POSITIVE DIFF @See below
[2018-02-20 08:07] LABS: ALANINE AMINOTRANSFERASE 25 IU/L (13-69); ALBUMIN 2.3 g/dl (3.3-4.9); ALBUMIN/GLOBULIN RATIO 0.65; ALKALINE PHOSPHATASE 98 IU/L (42-121); ANION GAP 12 (8-16); ASPARTATE AMINO TRANSFERASE 34 IU/L (15-46); BILIRUBIN,INDIRECT 0.4 mg/dl (0-1.1); BILIRUBIN,TOTAL 0.4 mg/dl (0.2-1.3); BLOOD UREA NITROGEN 35 mg/dl (7-20); CALCIUM 8.3 mg/dl (8.4-10.2); CARBON DIOXIDE 20 mmol/L (21-31); CHLORIDE 114 mmol/L (97-110); CREATININE 1.89 mg/dl (0.44-1.00); GLUCOSE 251 mg/dl (70-220); POTASSIUM 4.1 mmol/L (3.5-5.1); SODIUM 142 mmol/L (135-144); TOTAL PROTEIN 5.8 g/dl (6.1-8.1)
[2018-02-20] MEDS: Insulin NOVOLOG SS MODERATE Algorithm (SS with meals and bedtime) SC ×4 (08:16→21:00)
[2018-02-20] MEDS: CITRIC ACID/SODIUM CITRATE 15 ML CUP PO ×2 (08:37→21:15)
[2018-02-20] MEDS: FOLIC ACID 1 MG TAB PO (08:37)
[2018-02-20] MEDS: GABAPENTIN 100 MG CAP PO ×2 (08:38→11:59)
[2018-02-20] MEDS: RIFAXIMIN 550 MG TAB PO ×2 (08:38→21:15)
[2018-02-20] MEDS: CREON (12k-38k-60k) 1 CAP PO ×2 (12:00→17:58)
[2018-02-20] MEDS: MENTHOL/METH SALICYLATE 30 GM OINT TOP (21:15)
[2018-02-20] MEDS: INSULIN GLARGINE [LANtus] 3 ML PEN SC (21:20)
[2018-02-21] MEDS: ACCUCHECK AT 2AM (Patients on SS coverage) XX (02:00)
[2018-02-21] MEDS: PANTOPRAZOLE (EC) 40 MG TAB PO ×2 (05:57→17:30)
[2018-02-21] MEDS: LACTULOSE 30ML CUP PO ×4 (05:57→17:30)
[2018-02-21] MEDS: LEVOTHYROXINE 100 MCG TAB PO (05:57)
[2018-02-21] MEDS: OXYCODONE/ACETAMINOPHEN (5/325) TAB PO (06:56)
[2018-02-21 06:58] LABS: ANION GAP 11 (8-16); BLOOD UREA NITROGEN 41 mg/dl (7-20); CALCIUM 8.3 mg/dl (8.4-10.2); CARBON DIOXIDE 19 mmol/L (21-31); CHLORIDE 114 mmol/L (97-110); CREATININE 1.98 mg/dl (0.44-1.00); GLUCOSE 112 mg/dl (70-220); PHOSPHORUS 5.1 mg/dl (2.5-4.9); POTASSIUM 4.3 mmol/L (3.5-5.1); SODIUM 140 mmol/L (135-144)
[2018-02-21] MEDS: Insulin NOVOLOG SS MODERATE Algorithm (SS with meals and bedtime) SC ×4 (07:35→20:54)
[2018-02-21] MEDS: CREON (12k-38k-60k) 1 CAP PO ×3 (07:52→17:30)
[2018-02-21] MEDS: RIFAXIMIN 550 MG TAB PO ×2 (09:23→20:50)
[2018-02-21] MEDS: morphine LIQ (10 MG/5 ML) CUP PO (09:23)
[2018-02-21] MEDS: FOLIC ACID 1 MG TAB PO (09:23)
[2018-02-21] MEDS: MENTHOL/METH SALICYLATE 30 GM OINT TOP ×2 (09:23→12:07)
[2018-02-21] MEDS: CITRIC ACID/SODIUM CITRATE 15 ML CUP PO ×2 (09:24→20:50)
[2018-02-21] MEDS: INSULIN GLARGINE [LANtus] 3 ML PEN SC (20:56)
[2018-02-22] MEDS: LACTULOSE 30ML CUP PO ×5 (01:30→17:54)
[2018-02-22] MEDS: ACCUCHECK AT 2AM (Patients on SS coverage) XX (02:00)
[2018-02-22] MEDS: LEVOTHYROXINE 112 MCG TAB PO ×2 (06:00→06:26)
[2018-02-22] MEDS ORDERED: LEVOTHYROXINE 100 MCG TAB PO (06:00)
[2018-02-22] MEDS: PANTOPRAZOLE (EC) 40 MG TAB PO ×2 (06:15→17:54)
[2018-02-22] MEDS: Insulin NOVOLOG SS MODERATE Algorithm (SS with meals and bedtime) SC ×4 (07:35→20:45)
[2018-02-22] MEDS: FOLIC ACID 1 MG TAB PO (08:53)
[2018-02-22] MEDS: CITRIC ACID/SODIUM CITRATE 15 ML CUP PO ×2 (08:53→20:44)
[2018-02-22] MEDS: CREON (12k-38k-60k) 1 CAP PO ×3 (08:53→17:54)
[2018-02-22] MEDS: RIFAXIMIN 550 MG TAB PO ×2 (08:53→20:44)
[2018-02-22] MEDS: OXYCODONE/ACETAMINOPHEN (10/325) TAB PO (10:06)
[2018-02-22 11:21] LABS: ADD MAN DIFF? NO
[2018-02-22 11:25] LABS: ABNORMAL IP MESSAGE 1; BASOPHIL # 0.1 10^3/ul (0.0-0.1); EOSINOPHILS # 0.6 10^3/ul (0.0-0.5); HEMATOCRIT 23.4 % (37.0-47.0); HEMOGLOBIN 7.8 g/dl (12.0-16.0); LYMPHOCYTES # 1.7 10^3/ul (0.8-2.9); LYMPHOCYTES % 23.5 % (15.0-51.0); MEAN CORPUSCULAR HEMOGLOBIN 34.8 pg (29.0-33.0); MEAN CORPUSCULAR HGB CONC 33.3 g/dl (32.0-37.0); MEAN CORPUSCULAR VOLUME 104.5 fl (82.0-101.0); MEAN PLATELET VOLUME 12.7 fl (7.4-10.4); MONOCYTE # 0.9 10^3/ul (0.3-0.9); MONOCYTES % 12.1 % (0.0-11.0); NEUTROPHIL # 3.9 10^3/ul (1.6-7.5); NEUTROPHILS % 55.3 % (39.0-77.0); PLATELET COUNT 66 10^3/UL (140-415); POSITIVE DIFF @See below; RED BLOOD COUNT 2.24 10^6/ul (4.20-5.40); RED CELL DISTRIBUTION WIDTH 15.6 % (11.5-14.5)
[2018-02-22 11:25] LABS: WHITE BLOOD COUNT 7.1 10^3/ul (4.8-10.8)
[2018-02-22 11:45] LABS: ALANINE AMINOTRANSFERASE 30 IU/L (13-69); ALBUMIN 2.3 g/dl (3.3-4.9); ALBUMIN/GLOBULIN RATIO 0.62; ALKALINE PHOSPHATASE 86 IU/L (42-121); ANION GAP 13 (8-16); ASPARTATE AMINO TRANSFERASE 42 IU/L (15-46); BILIRUBIN,INDIRECT 0.8 mg/dl (0-1.1); BILIRUBIN,TOTAL 0.8 mg/dl (0.2-1.3); BLOOD UREA NITROGEN 47 mg/dl (7-20); CALCIUM 8.3 mg/dl (8.4-10.2); CARBON DIOXIDE 20 mmol/L (21-31); CHLORIDE 115 mmol/L (97-110); GLUCOSE 134 mg/dl (70-220); POTASSIUM 4.2 mmol/L (3.5-5.1); SODIUM 144 mmol/L (135-144)
[2018-02-22] MEDS: INSULIN GLARGINE [LANtus] 3 ML PEN SC (20:50)
[2018-02-23] MEDS: OXYCODONE/ACETAMINOPHEN (10/325) TAB PO ×2 (01:06→13:41)
[2018-02-23] MEDS: ACCUCHECK AT 2AM (Patients on SS coverage) XX (02:00)
[2018-02-23] MEDS: LEVOTHYROXINE 112 MCG TAB PO (05:04)
[2018-02-23] MEDS: PANTOPRAZOLE (EC) 40 MG TAB PO ×2 (05:04→17:38)
[2018-02-23] MEDS: LACTULOSE 30ML CUP PO ×4 (05:04→17:39)
[2018-02-23 08:08] LABS: ANION GAP 14 (8-16); BLOOD UREA NITROGEN 48 mg/dl (7-20); CALCIUM 7.8 mg/dl (8.4-10.2); CARBON DIOXIDE 19 mmol/L (21-31); CHLORIDE 112 mmol/L (97-110); CREATININE 2.43 mg/dl (0.44-1.00); GLUCOSE 268 mg/dl (70-220); MAGNESIUM 2.1 mg/dl (1.7-2.5); PHOSPHORUS 5.7 mg/dl (2.5-4.9); POTASSIUM 4.1 mmol/L (3.5-5.1); SODIUM 141 mmol/L (135-144)
[2018-02-23] MEDS: FOLIC ACID 1 MG TAB PO (08:16)
[2018-02-23] MEDS: RIFAXIMIN 550 MG TAB PO ×2 (08:16→20:42)
[2018-02-23] MEDS: CREON (12k-38k-60k) 1 CAP PO ×3 (08:16→17:38)
[2018-02-23] MEDS: CITRIC ACID/SODIUM CITRATE 15 ML CUP PO ×3 (08:16→20:42)
[2018-02-23] MEDS: Insulin NOVOLOG SS MODERATE Algorithm (SS with meals and bedtime) SC ×4 (08:18→20:59)
[2018-02-23] MEDS: ALBUMIN HUMAN 25% 100 ML IV (20:44)
[2018-02-23] MEDS: INSULIN GLARGINE [LANtus] 3 ML PEN SC (20:58)
[2018-02-24] MEDS: ACCUCHECK AT 2AM (Patients on SS coverage) XX (02:00)
[2018-02-24] MEDS: OXYCODONE/ACETAMINOPHEN (10/325) TAB PO ×2 (02:10→09:35)
[2018-02-24] MEDS: ALBUMIN HUMAN 25% 100 ML IV ×2 (02:12→09:29)
[2018-02-24] MEDS: LEVOTHYROXINE 112 MCG TAB PO (06:31)
[2018-02-24] MEDS: LACTULOSE 30ML CUP PO ×4 (06:31→17:37)
[2018-02-24] MEDS: PANTOPRAZOLE (EC) 40 MG TAB PO ×2 (06:31→17:37)
[2018-02-24] MEDS: CREON (12k-38k-60k) 1 CAP PO ×3 (07:58→17:37)
[2018-02-24] MEDS: Insulin NOVOLOG SS MODERATE Algorithm (SS with meals and bedtime) SC ×4 (07:59→20:51)
[2018-02-24 09:15] LABS: SODIUM,URINE RANDOM < 13 mmol/L (30-90)
[2018-02-24] MEDS: RIFAXIMIN 550 MG TAB PO ×2 (09:28→20:43)
[2018-02-24] MEDS: CITRIC ACID/SODIUM CITRATE 15 ML CUP PO ×3 (09:28→21:00)
[2018-02-24] MEDS: FOLIC ACID 1 MG TAB PO (09:28)
[2018-02-24 09:40] LABS: ANION GAP 12 (8-16); BLOOD UREA NITROGEN 51 mg/dl (7-20); CALCIUM 8.4 mg/dl (8.4-10.2); CARBON DIOXIDE 22 mmol/L (21-31); CHLORIDE 112 mmol/L (97-110); CREATININE 2.55 mg/dl (0.44-1.00); GLUCOSE 137 mg/dl (70-220); MAGNESIUM 2.2 mg/dl (1.7-2.5); PHOSPHORUS 5.3 mg/dl (2.5-4.9); SODIUM 142 mmol/L (135-144)
[2018-02-24] MEDS: NITROFURANTOIN (SR) 100 MG CAP PO (20:46)
[2018-02-24] MEDS: INSULIN GLARGINE [LANtus] 3 ML PEN SC (20:51)
[2018-02-24] MEDS: BETAMETHASONE/CLOTRIMAZOLE 15 GM CR TOP (20:55)
[2018-02-24] MEDS: traMADol 50 MG TAB PO ×2 (23:13→23:17)
[2018-02-24] MEDS ORDERED: ALBUMIN HUMAN 25% 100 ML IV (23:30)
[2018-02-25] MEDS: OXYCODONE/ACETAMINOPHEN (10/325) TAB PO ×2 (01:50→22:22)
[2018-02-25] MEDS: LACTULOSE 30ML CUP PO ×4 (02:00→18:00)
[2018-02-25] MEDS: ACCUCHECK AT 2AM (Patients on SS coverage) XX (02:00)
[2018-02-25] MEDS: PANTOPRAZOLE (EC) 40 MG TAB PO ×2 (06:17→18:00)
[2018-02-25] MEDS: LEVOTHYROXINE 112 MCG TAB PO (06:17)
[2018-02-25] MEDS: Insulin NOVOLOG SS MODERATE Algorithm (SS with meals and bedtime) SC ×4 (07:35→22:41)
[2018-02-25] MEDS: CREON (12k-38k-60k) 1 CAP PO ×3 (08:25→17:35)
[2018-02-25] MEDS: NITROFURANTOIN (SR) 100 MG CAP PO ×2 (08:25→22:19)
[2018-02-25] MEDS: RIFAXIMIN 550 MG TAB PO ×2 (08:25→22:19)
[2018-02-25] MEDS: FOLIC ACID 1 MG TAB PO (08:25)
[2018-02-25] MEDS: BETAMETHASONE/CLOTRIMAZOLE 15 GM CR TOP ×2 (08:26→22:32)
[2018-02-25] MEDS: CITRIC ACID/SODIUM CITRATE 15 ML CUP PO ×2 (08:26→22:19)
[2018-02-25 09:14] LABS: ADD MAN DIFF? NO
[2018-02-25 09:19] LABS: ABNORMAL IP MESSAGE 1; BASOPHIL # 0.1 10^3/ul (0.0-0.1); BASOPHILS % 0.8 % (0.0-2.0); EOSINOPHILS # 0.6 10^3/ul (0.0-0.5); EOSINOPHILS % 7.9 % (0.0-7.0); HEMATOCRIT 22.5 % (37.0-47.0); HEMOGLOBIN 7.6 g/dl (12.0-16.0); LYMPHOCYTES # 2.2 10^3/ul (0.8-2.9); LYMPHOCYTES % 29.3 % (15.0-51.0); MEAN CORPUSCULAR HEMOGLOBIN 35.5 pg (29.0-33.0); MEAN CORPUSCULAR HGB CONC 33.8 g/dl (32.0-37.0); MEAN CORPUSCULAR VOLUME 105.1 fl (82.0-101.0); MONOCYTE # 0.9 10^3/ul (0.3-0.9); MONOCYTES % 12.7 % (0.0-11.0); NEUTROPHIL # 3.6 10^3/ul (1.6-7.5); PLATELET COUNT 67 10^3/UL (140-415); RED BLOOD COUNT 2.14 10^6/ul (4.20-5.40); RED CELL DISTRIBUTION WIDTH 15.9 % (11.5-14.5)
[2018-02-25 09:19] LABS: WHITE BLOOD COUNT 7.4 10^3/ul (4.8-10.8)
[2018-02-25 09:20] LABS: POSITIVE DIFF @See below
[2018-02-25 09:41] LABS: ALANINE AMINOTRANSFERASE 39 IU/L (13-69); ALBUMIN 2.8 g/dl (3.3-4.9); ALBUMIN/GLOBULIN RATIO 0.77; ALKALINE PHOSPHATASE 84 IU/L (42-121); ANION GAP 11 (8-16); ASPARTATE AMINO TRANSFERASE 58 IU/L (15-46); BILIRUBIN,INDIRECT 0.8 mg/dl (0-1.1); BILIRUBIN,TOTAL 0.8 mg/dl (0.2-1.3); BLOOD UREA NITROGEN 54 mg/dl (7-20); CALCIUM 8.7 mg/dl (8.4-10.2); CARBON DIOXIDE 21 mmol/L (21-31); CHLORIDE 116 mmol/L (97-110); CREATININE 2.77 mg/dl (0.44-1.00); GLUCOSE 96 mg/dl (70-220); POTASSIUM 4.2 mmol/L (3.5-5.1); SODIUM 144 mmol/L (135-144); TOTAL PROTEIN 6.4 g/dl (6.1-8.1)
[2018-02-25 09:52] LABS: INR 1.85; PROTIME 21.8 Sec (11.9-14.9); PT RATIO 1.7
[2018-02-25 09:53] LABS: PARTIAL THROMBOPLASTIN TIME 45.9 Sec (25.0-35.0)
[2018-02-25] MEDS: LIDOCAINE 1% (MDV) 10 ML INJ (13:22)
[2018-02-25] MEDS: ALBUMIN HUMAN 25% 100 ML IV ×2 (14:08→22:32)
[2018-02-25 14:23] LABS: FLD MN% 53.5 %; FLD PMN% 46.5 %; FLD RBC 0 /uL; FLD WBC 204 /cmm
[2018-02-25 14:25] LABS: FLUID LD 157 U/L; FLUID TOTAL PROTEIN < 2.0 g/dl; FLUID TYPE PARACENTESIS FLUID
[2018-02-25 15:27] LABS: FLD TYPE PARACENTHESIS
[2018-02-25 15:27] LABS: FLD CLARITY SLIGHTLY HAZY; FLD COLOR YELLOW; PATH REVIEW? YES
[2018-02-25] MEDS: INSULIN GLARGINE [LANtus] 3 ML PEN SC (22:41)
[2018-02-26 00:13] LABS: CREATININE,URINE RANDOM 121.26 mg/dl (20-320)
[2018-02-26 00:23] LABS: PROTEIN/CREAT RATIO 4.67 RATIO
[2018-02-26] MEDS: ACCUCHECK AT 2AM (Patients on SS coverage) XX (02:00)
[2018-02-26] MEDS: LEVOTHYROXINE 112 MCG TAB PO (06:31)
[2018-02-26] MEDS: LACTULOSE 30ML CUP PO ×5 (06:31→18:00)
[2018-02-26] MEDS: ALBUMIN HUMAN 25% 100 ML IV ×3 (06:31→21:39)
[2018-02-26] MEDS: PANTOPRAZOLE (EC) 40 MG TAB PO (06:31)
[2018-02-26] MEDS: Insulin NOVOLOG SS MODERATE Algorithm (SS with meals and bedtime) SC ×4 (07:35→21:42)
[2018-02-26] MEDS: CREON (12k-38k-60k) 1 CAP PO ×3 (08:05→18:31)
[2018-02-26] MEDS: CITRIC ACID/SODIUM CITRATE 15 ML CUP PO ×3 (08:29→21:33)
[2018-02-26] MEDS: FOLIC ACID 1 MG TAB PO (08:29)
[2018-02-26] MEDS: RIFAXIMIN 550 MG TAB PO ×2 (08:29→21:35)
[2018-02-26] MEDS: NITROFURANTOIN (SR) 100 MG CAP PO ×2 (08:29→21:35)
[2018-02-26] MEDS: BETAMETHASONE/CLOTRIMAZOLE 15 GM CR TOP ×2 (08:30→21:46)
[2018-02-26] MEDS: OXYCODONE/ACETAMINOPHEN (10/325) TAB PO (11:44)
[2018-02-26 12:18] LABS: ANION GAP 13 (8-16); BLOOD UREA NITROGEN 56 mg/dl (7-20); CALCIUM 8.9 mg/dl (8.4-10.2); CARBON DIOXIDE 22 mmol/L (21-31); CHLORIDE 111 mmol/L (97-110); CREATININE 3.05 mg/dl (0.44-1.00); GLUCOSE 119 mg/dl (70-220); POTASSIUM 4.2 mmol/L (3.5-5.1); SODIUM 142 mmol/L (135-144)
[2018-02-26] MEDS: INSULIN GLARGINE [LANtus] 3 ML PEN SC (21:41)
[2018-02-27] MEDS: LACTULOSE 30ML CUP PO ×2 (00:30→06:14)
[2018-02-27] MEDS: ACCUCHECK AT 2AM (Patients on SS coverage) XX (02:00)
[2018-02-27] MEDS: OXYCODONE/ACETAMINOPHEN (10/325) TAB PO (02:22)
[2018-02-27] MEDS: LEVOTHYROXINE 112 MCG TAB PO (06:14)
[2018-02-27] MEDS: ALBUMIN HUMAN 25% 100 ML IV (06:16)
[2018-02-27 06:38] LABS: ADD MAN DIFF? NO
[2018-02-27 06:43] LABS: ABNORMAL IP MESSAGE 1; BASOPHILS % 0.6 % (0.0-2.0); EOSINOPHILS # 0.5 10^3/ul (0.0-0.5); EOSINOPHILS % 7.1 % (0.0-7.0); HEMATOCRIT 19.4 % (37.0-47.0); LYMPHOCYTES # 1.4 10^3/ul (0.8-2.9); LYMPHOCYTES % 18.9 % (15.0-51.0); MEAN CORPUSCULAR HEMOGLOBIN 34.9 pg (29.0-33.0); MEAN CORPUSCULAR HGB CONC 33.5 g/dl (32.0-37.0); MEAN CORPUSCULAR VOLUME 104.3 fl (82.0-101.0); MEAN PLATELET VOLUME 13.6 fl (7.4-10.4); MONOCYTES % 14.4 % (0.0-11.0); NEUTROPHIL # 4.2 10^3/ul (1.6-7.5); NEUTROPHILS % 58.7 % (39.0-77.0); PLATELET COUNT 61 10^3/UL (140-415); RED BLOOD COUNT 1.86 10^6/ul (4.20-5.40); RED CELL DISTRIBUTION WIDTH 16.1 % (11.5-14.5)
[2018-02-27 06:43] LABS: WHITE BLOOD COUNT 7.2 10^3/ul (4.8-10.8)
[2018-02-27 07:01] LABS: HEMOGLOBIN 6.5 g/dl (12.0-16.0); PATH REVIEW? YES; POSITIVE DIFF @See below
[2018-02-27 07:13] LABS: PHOSPHORUS 5.7 mg/dl (2.5-4.9)
[2018-02-27 07:13] LABS: MAGNESIUM 2.3 mg/dl (1.7-2.5)
[2018-02-27 07:14] LABS: ANION GAP 20 (8-16); BLOOD UREA NITROGEN 57 mg/dl (7-20); CALCIUM 8.7 mg/dl (8.4-10.2); CARBON DIOXIDE 19 mmol/L (21-31); CHLORIDE 110 mmol/L (97-110); CREATININE 3.03 mg/dl (0.44-1.00); GLUCOSE 90 mg/dl (70-220); POTASSIUM 4.1 mmol/L (3.5-5.1); SODIUM 145 mmol/L (135-144)
[2018-02-27 09:27] LABS: ANISOCYTOSIS 3+ (0-0); BASOPHILS % (M) 1 % (0-2); EOSINOPHILS % (M) 11 % (0-7); GIANT THROMBO% (M) 2 % (0-0); HYPOCHROMASIA 2+ (0-0); LYMPHOCYTES #M 1.2 10^3/ul (0.8-2.9); LYMPHOCYTES % (M) 17 % (15-51); MONOCYTES % (M) 1 % (0-11); PLATELET ESTIMATE DECREASED; POIKILOCYTOSIS 1+ (0-0); POLYCHROMASIA 1+ (0-0); SEGMENTED NEUTROPHILS (M) % 70 % (39-77)
[2018-02-27 09:36] LABS: IMMEDIATE SPIN CROSSMATCH 1 2
[2018-02-27 15:55] LABS: PATH REVIEW CH
== END 2018-02-27 10:50 | disposition short-term general hospital (02) | DRG 91 ==
LOC: VRC 02-26 00:07
PROC: F07Z5ZZ Bed Mobility Treatment (ICD-10-PCS; principal; 2018-02-19)
PROC: F08Z2ZZ Grooming/Personal Hygiene Treatment (ICD-10-PCS; 2018-02-19)
PROC: F06Z6ZZ Communicative/Cognitive Integration Skills Treatment (ICD-10-PCS; 2018-02-19)
PROC: 0W9G3ZZ Drainage of Peritoneal Cavity, Percutaneous Approach (ICD-10-PCS; 2018-02-25)
DX: G92 Toxic encephalopathy (principal); K85.90 Acute pancreatitis without necrosis or infection, unspecified; N17.9 Acute kidney failure, unspecified; R18.8 Other ascites; I12.9 Hypertensive chronic kidney disease with stage 1 through stage 4 chronic kidney disease, or unspecified chronic kidney disease; E11.22 Type 2 diabetes mellitus with diabetic chronic kidney disease; N18.9 Chronic kidney disease, unspecified; K74.60 Unspecified cirrhosis of liver; E03.9 Hypothyroidism, unspecified; E78.5 Hyperlipidemia, unspecified; Z79.4 Long term (current) use of insulin; D64.9 Anemia, unspecified; F06.31 Mood disorder due to known physiological condition with depressive features; F06.8 Other specified mental disorders due to known physiological condition
CPT/HCPCS: 36430; 76705; 80048; 80053; 81001; 81003; 82570; 82962; 83615; 83735; 84100; 84155; 84157; 84300; 84443; 85025; 85610; 85730; 86850; 86900; 86901; 86920; 87070; 87081; 87086; 87102; 87116; 88104; 88305; 89051; 92507; 92523; 94664; 97110; 97116; 97150; 97163; 97530; 97535

== ENCOUNTER 2018-02-27 11:22 | Inpatient (IN) | payer MEDICARE, OTHER ==
[2018-02-27] MEDS ORDERED: ONDANSETRON 4 MG INJ IV ×2 (12:30→13:30)
[2018-02-27] MEDS ORDERED: NACL 0.9% 3 ML SYG IV (12:30)
[2018-02-27] MEDS: CITRIC ACID/SODIUM CITRATE 15 ML CUP PO ×3 (12:30→20:18)
[2018-02-27] MEDS ORDERED: ACETAMINOPHEN 325 MG TAB PO (13:30)
[2018-02-27] MEDS: GABAPENTIN 100 MG CAP PO (13:48)
[2018-02-27] MEDS ORDERED: GLUCOSE GEL 15 GRAM TUBE PO ×2 (14:00)
[2018-02-27] MEDS ORDERED: GLUCAGON 1 MG INJ IM (14:00)
[2018-02-27] MEDS ORDERED: GLUCOSE GEL 15 GRAM TUBE BUCCAL (14:00)
[2018-02-27] MEDS ORDERED: DC GLYBURIDE, GLIPIZIDE,GLIMEPIRIDE AND PREVIOUS INSULIN ORDERS XX (14:00)
[2018-02-27] MEDS ORDERED: DEXTROSE 50% 50 ML SYRINGE IV ×2 (14:00)
[2018-02-27] MEDS ORDERED: REPAGLINIDE 1 MG TAB PO (17:35)
[2018-02-27] MEDS: PANTOPRAZOLE (EC) 40 MG TAB PO (17:38)
[2018-02-27] MEDS: CREON (12k-38k-60k) 1 CAP PO (17:38)
[2018-02-27] MEDS: INSULIN ASPART [NOVOLOG] 3 ML PEN SC ×3 (17:40→20:20)
[2018-02-27] MEDS: OXYCODONE/ACETAMINOPHEN (10/325) TAB PO (17:47)
[2018-02-27] MEDS: ALBUTEROL/IPRATROPIUM (NEB) 3 ML AMP HHN ×2 (17:53→21:36)
[2018-02-27] MEDS ORDERED: LACTULOSE 30ML CUP PO (18:00)
[2018-02-27] MEDS ORDERED: Insulin NOVOLOG SS MODERATE Algorithm (SS with meals and bedtime) SC (18:05)
[2018-02-27] MEDS: RIFAXIMIN 550 MG TAB PO (20:18)
[2018-02-27] MEDS: INSULIN GLARGINE [LANtus] 3 ML PEN SC (20:19)
[2018-02-27] MEDS: BETAMETHASONE/CLOTRIMAZOLE 15 GM CR TOP (20:31)
[2018-02-27] MEDS: LACTULOSE 30ML CUP PO (20:31)
[2018-02-27] MEDS ORDERED: NITROFURANTOIN (SR) 100 MG CAP PO (21:00)
[2018-02-27 22:49] LABS: ADD UMIC YES; UR ASCORBIC ACID 20 mg/dL (NEGATIVE); UR BACTERIA FEW /HPF (NONE SEEN); UR BILIRUBIN (Dip) NEGATIVE (NEGATIVE); UR BLOOD (Dip) 3+ mg/dL (NEGATIVE); UR BUDDING YEAST FEW /HPF (NONE SEEN); UR CLARITY SLIGHTLY CLOUDY (CLEAR); UR COLOR AMBER (YELLOW); UR GLUCOSE (Dip) NEGATIVE (NEGATIVE); UR KETONES (Dip) NEGATIVE (NEGATIVE); UR LEUKOCYTE ESTERASE (Dip) NEGATIVE Leu/ul (NEGATIVE); UR NITRITE (Dip) NEGATIVE (NEGATIVE); UR RBC > 182 /HPF (0-5); UR SPECIFIC GRAVITY (Dip) 1.017 (1.003-1.030); UR SQUAMOUS EPITHELIAL CELL FEW /HPF (FEW); UR TOTAL PROTEIN (Dip) 3+ mg/dl (NEGATIVE); UR UROBILINOGEN (Dip) NEGATIVE (NEGATIVE); UR WBC 16 /HPF (0-5)
[2018-02-28] MEDS: ALBUTEROL/IPRATROPIUM (NEB) 3 ML AMP HHN ×4 (00:51→13:00)
[2018-02-28] MEDS: ACCUCHECK 2 AM XX (02:00)
[2018-02-28] MEDS ORDERED: ACCU-CHEK XX (02:00)
[2018-02-28] MEDS: LEVOTHYROXINE 100 MCG TAB PO (06:04)
[2018-02-28] MEDS: PANTOPRAZOLE (EC) 40 MG TAB PO (06:04)
[2018-02-28 06:55] LABS: ABNORMAL IP MESSAGE 1; ADD MAN DIFF? NO; BASOPHIL # 0.1 10^3/ul (0.0-0.1); BASOPHILS % 0.6 % (0.0-2.0); EOSINOPHILS # 0.6 10^3/ul (0.0-0.5); EOSINOPHILS % 6.6 % (0.0-7.0); HEMATOCRIT 24.7 % (37.0-47.0); HEMOGLOBIN 8.6 g/dl (12.0-16.0); LYMPHOCYTES # 2.7 10^3/ul (0.8-2.9); LYMPHOCYTES % 28.6 % (15.0-51.0); MEAN CORPUSCULAR HGB CONC 34.8 g/dl (32.0-37.0); MEAN CORPUSCULAR VOLUME 97.6 fl (82.0-101.0); MONOCYTE # 1.6 10^3/ul (0.3-0.9); MONOCYTES % 17.4 % (0.0-11.0); NEUTROPHIL # 4.4 10^3/ul (1.6-7.5); NEUTROPHILS % 46.6 % (39.0-77.0); RED BLOOD COUNT 2.53 10^6/ul (4.20-5.40); RED CELL DISTRIBUTION WIDTH 18.3 % (11.5-14.5)
[2018-02-28 06:55] LABS: WHITE BLOOD COUNT 9.4 10^3/ul (4.8-10.8)
[2018-02-28 07:07] LABS: PLATELET COUNT 69 10^3/UL (140-415); POSITIVE DIFF @See below
[2018-02-28] MEDS: INSULIN ASPART [NOVOLOG] 3 ML PEN SC ×4 (07:35→12:29)
[2018-02-28 07:36] LABS: ALANINE AMINOTRANSFERASE 23 IU/L (13-69); ALBUMIN 3.4 g/dl (3.3-4.9); ALBUMIN/GLOBULIN RATIO 1.06; ALKALINE PHOSPHATASE 66 IU/L (42-121); ANION GAP 17 (8-16); ASPARTATE AMINO TRANSFERASE 42 IU/L (15-46); BILIRUBIN,INDIRECT 2.2 mg/dl (0-1.1); BILIRUBIN,TOTAL 2.2 mg/dl (0.2-1.3); BLOOD UREA NITROGEN 57 mg/dl (7-20); CALCIUM 9.1 mg/dl (8.4-10.2); CARBON DIOXIDE 21 mmol/L (21-31); CHLORIDE 111 mmol/L (97-110); CREATININE 3.08 mg/dl (0.44-1.00); MAGNESIUM 2.3 mg/dl (1.7-2.5); PHOSPHORUS 5.8 mg/dl (2.5-4.9); POTASSIUM 3.6 mmol/L (3.5-5.1); SODIUM 145 mmol/L (135-144); TOTAL PROTEIN 6.6 g/dl (6.1-8.1)
[2018-02-28 07:47] LABS: GLUCOSE 32 mg/dl (70-220)
[2018-02-28] MEDS: CREON (12k-38k-60k) 1 CAP PO ×2 (08:07→12:32)
[2018-02-28] MEDS: FOLIC ACID 1 MG TAB PO (08:32)
[2018-02-28] MEDS: CITRIC ACID/SODIUM CITRATE 15 ML CUP PO (08:32)
[2018-02-28] MEDS: BETAMETHASONE/CLOTRIMAZOLE 15 GM CR TOP (08:32)
[2018-02-28] MEDS: RIFAXIMIN 550 MG TAB PO (08:32)
[2018-02-28] MEDS: LACTULOSE 30ML CUP PO (08:33)
[2018-02-28] MEDS: OXYCODONE/ACETAMINOPHEN (10/325) TAB PO (10:28)
[2018-02-28] MEDS: DEXTROSE 5% 1,000 ML IV (12:32)
== END 2018-02-28 13:58 | disposition home or self-care (01) | DRG 683 ==
LOC: PP2 11:22
PROVIDERS: Internal Medicine Pulmonary Disease
DX: N17.0 Acute kidney failure with tubular necrosis (principal); E87.0 Hyperosmolality and hypernatremia; N18.9 Chronic kidney disease, unspecified; E11.22 Type 2 diabetes mellitus with diabetic chronic kidney disease; D63.1 Anemia in chronic kidney disease; K70.31 Alcoholic cirrhosis of liver with ascites; E80.6 Other disorders of bilirubin metabolism; R80.8 Other proteinuria; E66.3 Overweight; D69.6 Thrombocytopenia, unspecified; E03.9 Hypothyroidism, unspecified; E83.39 Other disorders of phosphorus metabolism; Z53.21 Procedure and treatment not carried out due to patient leaving prior to being seen by health care provider; Z87.440 Personal history of urinary (tract) infections; Z86.61 Personal history of infections of the central nervous system
CPT/HCPCS: 76705; 80053; 81001; 82962; 83735; 84100; 85025; 87086; 94640; 97162

== ENCOUNTER 2018-05-07 18:35 | Emergency (ER) | payer MEDICARE, OTHER ==
[2018-05-07 20:14] LABS: ABNORMAL IP MESSAGE 1; ADD MAN DIFF? NO; HEMATOCRIT 25.5 % (37.0-47.0); HEMOGLOBIN 8.7 g/dl (12.0-16.0); MEAN CORPUSCULAR HEMOGLOBIN 35.2 pg (29.0-33.0); MEAN CORPUSCULAR HGB CONC 34.1 g/dl (32.0-37.0); MEAN CORPUSCULAR VOLUME 103.2 fl (82.0-101.0); MEAN PLATELET VOLUME 11.7 fl (7.4-10.4); PLATELET COUNT 65 10^3/UL (140-415); RED BLOOD COUNT 2.47 10^6/ul (4.20-5.40); RED CELL DISTRIBUTION WIDTH 20.1 % (11.5-14.5)
[2018-05-07 20:14] LABS: WHITE BLOOD COUNT 6.4 10^3/ul (4.8-10.8)
[2018-05-07 20:34] LABS: ANION GAP 14 (8-16); BLOOD UREA NITROGEN 28 mg/dl (7-20); CALCIUM 8.5 mg/dl (8.4-10.2); CARBON DIOXIDE 23 mmol/L (21-31); CHLORIDE 94 mmol/L (97-110); CREATININE 4.32 mg/dl (0.44-1.00); GLUCOSE 263 mg/dl (70-220); POTASSIUM 4.7 mmol/L (3.5-5.1); SODIUM 126 mmol/L (135-144)
[2018-05-07 20:46] LABS: POSITIVE DIFF @See below
[2018-05-07 22:24] LABS: ANISOCYTOSIS 3+ (0-0); EOSINOPHILS % (M) 6 % (0-7); LYMPHOCYTES #M 0.5 10^3/ul (0.8-2.9); LYMPHOCYTES % (M) 9 % (15-51); MONOCYTE #M 0.4 10^3/ul (0.3-0.9); MONOCYTES % (M) 7 % (0-11); PLATELET MORPHOLOGY COMMENT @See below; SEGMENTED NEUTROPHILS (M) % 78 % (39-77); SMUDGE%M 4 % (0-0)
== END 2018-05-07 21:27 | disposition home or self-care (01) ==
LOC: E/R 18:35
DX: N18.6 End stage renal disease (principal); E87.1 Hypo-osmolality and hyponatremia; E11.9 Type 2 diabetes mellitus without complications; Z79.4 Long term (current) use of insulin; Z87.891 Personal history of nicotine dependence; Z99.2 Dependence on renal dialysis
CPT/HCPCS: 36415; 71045; 80048; 85025; 93005; 99285-25

== ENCOUNTER 2018-12-07 02:57 | Inpatient (IN) | payer MEDICARE, OTHER ==
[2018-12-07] MEDS: SOD CHLORIDE 0.9% 1,000 ML IV ×2 (03:42→07:00)
[2018-12-07] MEDS: morphine 4 MG/ML VIAL IV (03:42)
[2018-12-07] MEDS: ONDANSETRON 4 MG INJ IV ×2 (03:42→04:02)
[2018-12-07 04:11] LABS: ABNORMAL IP MESSAGE 1; HEMATOCRIT 32.7 % (37.0-47.0); HEMOGLOBIN 10.9 g/dl (12.0-16.0); MEAN CORPUSCULAR HEMOGLOBIN 34.7 pg (29.0-33.0); MEAN CORPUSCULAR HGB CONC 33.3 g/dl (32.0-37.0); MEAN CORPUSCULAR VOLUME 104.1 fl (82.0-101.0); PLATELET COUNT 40 10^3/UL (140-415); RED BLOOD COUNT 3.14 10^6/ul (4.20-5.40); RED CELL DISTRIBUTION WIDTH 17.4 % (11.5-14.5)
[2018-12-07 04:11] LABS: WHITE BLOOD COUNT 3.4 10^3/ul (4.8-10.8)
[2018-12-07 04:17] LABS: AMMONIA 33 umol/l (9-30)
[2018-12-07 04:17] LABS: INR 1.69; PT RATIO 1.6
[2018-12-07 04:19] LABS: ALANINE AMINOTRANSFERASE < 6 IU/L (13-69); ALBUMIN 2.8 g/dl (3.3-4.9); ALBUMIN/GLOBULIN RATIO 0.59; ALKALINE PHOSPHATASE 185 IU/L (42-121); ANION GAP 11 (5-13); ASPARTATE AMINO TRANSFERASE 25 IU/L (15-46); BILIRUBIN,INDIRECT 1.6 mg/dl (0-1.1); BILIRUBIN,TOTAL 1.6 mg/dl (0.2-1.3); BLOOD UREA NITROGEN 23 mg/dl (7-20); CALCIUM 8.4 mg/dl (8.4-10.2); CARBON DIOXIDE 23 mmol/L (21-31); CHLORIDE 103 mmol/L (97-110); CREATININE 7.46 mg/dl (0.44-1.00); Estimated GFR 6 mL/min (>60); GLUCOSE 213 mg/dl (70-220); LIPASE < 10 U/L (23-300); POTASSIUM 4.5 mmol/L (3.5-5.1); SODIUM 137 mmol/L (135-144); TOTAL PROTEIN 7.5 g/dl (6.1-8.1)
[2018-12-07 04:31] LABS: ADD MAN DIFF? YES; MEAN PLATELET VOLUME 14.4 fl (7.4-10.4); POSITIVE DIFF @See below
[2018-12-07] MEDS: HYDROmorphONE 0.5 MG/0.5 ML SYG IV ×4 (05:16→22:20)
[2018-12-07 05:29] LABS: ANISOCYTOSIS 3+ (0-0); BAND NEUTROPHILS #M 0.3 10^3/ul (0.0-0.6); BAND NEUTROPHILS % (M) 10 % (0-4); EOSINOPHILS % (M) 7 % (0-7); ERYTHROBLAST% (NRBC) (M) 1 % (0-0); GIANT THROMBO% (M) 2 % (0-0); LYMPHOCYTES #M 1.1 10^3/ul (0.8-2.9); LYMPHOCYTES % (M) 34 % (15-51); MONOCYTES % (M) 1 % (0-11); PLATELET ESTIMATE SIG DECREASED; POIKILOCYTOSIS 2+ (0-0); POLYCHROMASIA 1+ (0-0); PROMYELOCYTES % (M) 1 % (0-0); SEG NEUT #M 1.6 10^3/ul (1.6-7.5); SEGMENTED NEUTROPHILS (M) % 47 % (39-77); SMUDGE%M 45 % (0-0)
[2018-12-07] MEDS ORDERED: ONDANSETRON 4 MG INJ IV ×2 (07:00→08:30)
[2018-12-07] MEDS: ACETAMINOPHEN 325 MG TAB PO (07:22)
[2018-12-07] MEDS: FENTAnyl 50 MCG/ML VIAL IV (07:42)
[2018-12-07] MEDS: ALBUMIN HUMAN 25% 50 ML IV (07:44)
[2018-12-07] MEDS ORDERED: MAGNESIUM HYDROXIDE 30ML CUP PO (08:30)
[2018-12-07] MEDS ORDERED: NACL 0.9% 3 ML SYG IV (08:30)
[2018-12-07] MEDS ORDERED: morphine 2 MG INJ IV (08:30)
[2018-12-07] MEDS ORDERED: NITROGLYCERIN (SL) 0.4 MG TAB SL (08:30)
[2018-12-07] MEDS ORDERED: DOCUSATE SODIUM 100 MG CAP PO (08:30)
[2018-12-07] MEDS ORDERED: LORAZEPAM 2 MG INJ IV (08:30)
[2018-12-07] MEDS ORDERED: hydrALAzine 20 MG INJ IV (08:30)
[2018-12-07 09:09] LABS: FREE T4 (FREE THYROXINE) 1.32 ng/dl (0.64-1.79)
[2018-12-07 09:34] LABS: INR 2.15; PROTIME 24.1 Sec (11.9-14.9); PT RATIO 1.9
[2018-12-07 09:35] LABS: PARTIAL THROMBOPLASTIN TIME 42.8 Sec (23.0-35.0)
[2018-12-07] MEDS ORDERED: SODIUM CHLORIDE 0.9% 1L BAG IV (10:00)
[2018-12-07] MEDS ORDERED: GLUCAGON 1 MG INJ IM (10:00)
[2018-12-07] MEDS ORDERED: GLUCOSE GEL 15 GRAM TUBE BUCCAL (10:00)
[2018-12-07] MEDS ORDERED: GLUCOSE GEL 15 GRAM TUBE PO ×2 (10:00)
[2018-12-07] MEDS: FOLIC ACID 1 MG TAB PO (10:26)
[2018-12-07] MEDS: PANTOPRAZOLE (EC) 40 MG TAB PO (10:26)
[2018-12-07 10:50] LABS: LACTIC ACID 3.8 mmol/L (0.5-2.0)
[2018-12-07] MEDS: RIFAXIMIN 550 MG TAB PO ×2 (11:00→21:00)
[2018-12-07 11:23] LABS: HEPATITIS B SURFACE ANTIGEN NEGATIVE (NEGATIVE)
[2018-12-07] MEDS: LACTULOSE 30ML CUP PO ×2 (12:00→18:17)
[2018-12-07] MEDS: INSULIN ASPART [NOVOLOG] 3 ML PEN SC ×3 (12:00→21:00)
[2018-12-07] MEDS ORDERED: NON-FORMULARY/PATIENT OWN MED (Lipase-Protease-Amylase* (Creon DR* 6,000) 1 CAP) XX (12:00)
[2018-12-07 18:12] LABS: LACTIC ACID 3.3 mmol/L (0.5-2.0)
[2018-12-07] MEDS: INSULIN GLARGINE [LANTus] (100 UNITS/ML) SYG SC (22:31)
[2018-12-07 23:19] LABS: LACTIC ACID 3.3 mmol/L (0.5-2.0)
[2018-12-08] MEDS: LACTULOSE 30ML CUP PO ×4 (00:33→18:09)
[2018-12-08] MEDS: HYDROmorphONE 0.5 MG/0.5 ML SYG IV (04:34)
[2018-12-08 05:15] LABS: ADD MAN DIFF? NO
[2018-12-08 05:23] LABS: WHITE BLOOD COUNT 10.6 10^3/ul (4.8-10.8)
[2018-12-08 05:23] LABS: ABNORMAL IP MESSAGE 1; BASOPHILS % 0.1 % (0.0-2.0); EOSINOPHILS # 0.2 10^3/ul (0.0-0.5); EOSINOPHILS % 1.7 % (0.0-7.0); HEMATOCRIT 28.1 % (37.0-47.0); HEMOGLOBIN 9.6 g/dl (12.0-16.0); LYMPHOCYTES # 1.4 10^3/ul (0.8-2.9); LYMPHOCYTES % 13.5 % (15.0-51.0); MEAN CORPUSCULAR HGB CONC 34.2 g/dl (32.0-37.0); MEAN CORPUSCULAR VOLUME 102.6 fl (82.0-101.0); MONOCYTE # 1.2 10^3/ul (0.3-0.9); MONOCYTES % 11.4 % (0.0-11.0); NEUTROPHIL # 7.7 10^3/ul (1.6-7.5); PLATELET COUNT 53 10^3/UL (140-415); RED BLOOD COUNT 2.74 10^6/ul (4.20-5.40); RED CELL DISTRIBUTION WIDTH 17.5 % (11.5-14.5)
[2018-12-08 05:32] LABS: POSITIVE DIFF @See below
[2018-12-08 05:43] LABS: ANION GAP 9 (5-13)
[2018-12-08 05:44] LABS: BLOOD UREA NITROGEN 30 mg/dl (7-20); CALCIUM 8.5 mg/dl (8.4-10.2); CARBON DIOXIDE 22 mmol/L (21-31); CHLORIDE 107 mmol/L (97-110); CHOL/HDL RATIO 1.8 RATIO; CHOLESTEROL 78 mg/dl (100-200); CREATININE 8.76 mg/dl (0.44-1.00); Estimated GFR 5 mL/min (>60); GLUCOSE 55 mg/dl (70-220); HDL CHOLESTEROL 42 mg/dl (37-92); LDL CHOLESTEROL,CALCULATED 22 mg/dl; PHOSPHORUS 4.9 mg/dl (2.5-4.9); POTASSIUM 4.4 mmol/L (3.5-5.1); SODIUM 138 mmol/L (135-144); TRIGLYCERIDES 70 mg/dl (0-149)
[2018-12-08 05:52] LABS: AMMONIA 89 umol/l (9-30)
[2018-12-08 06:02] LABS: LACTIC ACID 2.9 mmol/L (0.5-2.0)
[2018-12-08 06:23] LABS: HEMOGLOBIN A1C 8.6 % (0-5.9)
[2018-12-08] MEDS: PANTOPRAZOLE (EC) 40 MG TAB PO (06:58)
[2018-12-08] MEDS: LEVOTHYROXINE 88 MCG TAB PO (07:00)
[2018-12-08] MEDS: DEXTROSE 50% 50 ML SYRINGE IV (07:58)
[2018-12-08] MEDS: INSULIN ASPART [NOVOLOG] 3 ML PEN SC ×4 (08:00→20:45)
[2018-12-08 08:10] LABS: ANISOCYTOSIS 2+ (0-0); BAND NEUTROPHILS #M 2.2 10^3/ul (0.0-0.6); BAND NEUTROPHILS % (M) 21 % (0-4); BASOPHIL #M 0.1 10^3/ul (0.0-0.0); BASOPHILS % (M) 1 % (0-2); BURR CELLS 1+ (0-0); EOSINOPHILS % (M) 5 % (0-7); LYMPHOCYTES % (M) 10 % (15-51); MONOCYTE #M 0.1 10^3/ul (0.3-0.9); MONOCYTES % (M) 1 % (0-11); MYELOCYTES #M 0.1 10^3/ul (0.0-0.0); MYELOCYTES % (M) 1 % (0-0); POIKILOCYTOSIS 1+ (0-0); SEG NEUT #M 6.7 10^3/ul (1.6-7.5); SEGMENTED NEUTROPHILS (M) % 61 % (39-77); SMUDGE%M 33 % (0-0)
[2018-12-08 08:11] LABS: PLATELET ESTIMATE DECREASED
[2018-12-08 08:53] LABS: GLUCOSE 194 mg/dl (70-220)
[2018-12-08] MEDS: ALBUMIN HUMAN 25% 100 ML IV ×2 (09:51→10:58)
[2018-12-08] MEDS: FOLIC ACID 1 MG TAB PO ×2 (10:16→12:34)
[2018-12-08] MEDS: RIFAXIMIN 550 MG TAB PO ×3 (10:17→20:34)
[2018-12-08 10:36] LABS: LACTIC ACID 2.3 mmol/L (0.5-2.0)
[2018-12-08] MEDS: HEPARIN 1000 UNITS/ML 10 ML INJ CATHETER (11:53)
[2018-12-08] MEDS: HYDROmorphONE 2 MG TAB PO (15:20)
[2018-12-08] MEDS: SENNA TAB PO (20:34)
[2018-12-08] MEDS: INSULIN GLARGINE [LANTus] (100 UNITS/ML) SYG SC (20:45)
[2018-12-09] MEDS: LACTULOSE 30ML CUP PO ×4 (00:07→17:23)
[2018-12-09] MEDS: PANTOPRAZOLE (EC) 40 MG TAB PO (05:42)
[2018-12-09 05:52] LABS: ADD MAN DIFF? NO
[2018-12-09 05:56] LABS: ABNORMAL IP MESSAGE 1; BASOPHILS % 0.3 % (0.0-2.0); EOSINOPHILS # 0.1 10^3/ul (0.0-0.5); EOSINOPHILS % 0.9 % (0.0-7.0); HEMATOCRIT 24.7 % (37.0-47.0); HEMOGLOBIN 8.5 g/dl (12.0-16.0); LYMPHOCYTES # 1.4 10^3/ul (0.8-2.9); LYMPHOCYTES % 13.9 % (15.0-51.0); MEAN CORPUSCULAR HEMOGLOBIN 35.1 pg (29.0-33.0); MEAN CORPUSCULAR HGB CONC 34.4 g/dl (32.0-37.0); MEAN CORPUSCULAR VOLUME 102.1 fl (82.0-101.0); MEAN PLATELET VOLUME 13.2 fl (7.4-10.4); MONOCYTE # 1.6 10^3/ul (0.3-0.9); NEUTROPHIL # 6.8 10^3/ul (1.6-7.5); NEUTROPHILS % 68.3 % (39.0-77.0); PLATELET COUNT 58 10^3/UL (140-415); RED BLOOD COUNT 2.42 10^6/ul (4.20-5.40); RED CELL DISTRIBUTION WIDTH 17.3 % (11.5-14.5)
[2018-12-09 06:01] LABS: POSITIVE DIFF @See below
[2018-12-09 06:37] LABS: ANION GAP 12 (5-13); BLOOD UREA NITROGEN 19 mg/dl (7-20); CALCIUM 8.6 mg/dl (8.4-10.2); CARBON DIOXIDE 25 mmol/L (21-31); CHLORIDE 101 mmol/L (97-110); CREATININE 5.88 mg/dl (0.44-1.00); Estimated GFR 7 mL/min (>60); POTASSIUM 3.6 mmol/L (3.5-5.1); SODIUM 138 mmol/L (135-144)
[2018-12-09 06:49] LABS: GLUCOSE 38 mg/dl (70-220)
[2018-12-09] MEDS: LEVOTHYROXINE 88 MCG TAB PO (07:00)
[2018-12-09] MEDS: DEXTROSE 50% 50 ML SYRINGE IV (07:07)
[2018-12-09] MEDS: FOLIC ACID 1 MG TAB PO (08:07)
[2018-12-09] MEDS: SENNA TAB PO ×2 (08:07→21:39)
[2018-12-09] MEDS: RIFAXIMIN 550 MG TAB PO ×2 (08:07→21:39)
[2018-12-09] MEDS: INSULIN ASPART [NOVOLOG] 3 ML PEN SC ×4 (08:25→21:00)
[2018-12-09] MEDS: LIDOCAINE 1% (MPF) 5 ML VIAL (10:40)
[2018-12-09 12:20] LABS: FLD MN% 12.9 %; FLD PMN% 87.1 %; FLD RBC 2000 /uL; FLD WBC 7273 /cmm
[2018-12-09] MEDS: HYDROmorphONE 2 MG TAB PO (12:50)
[2018-12-09 12:54] LABS: FLUID TOTAL PROTEIN < 2.0 g/dl
[2018-12-09 13:52] LABS: FLD TYPE PARACENTHESIS
[2018-12-09 13:52] LABS: FLD CLARITY CLOUDY; FLD COLOR YELLOW
[2018-12-09] MEDS: ALBUMIN HUMAN 25% 100 ML IV ×2 (15:53→18:31)
[2018-12-09] MEDS: ALBUTEROL/IPRATROPIUM (NEB) 3 ML AMP HHN (16:09)
[2018-12-09] MEDS: CEFTRIAXONE 1 GM/50 ML (PMX) 50 ML IVPB (18:00)
[2018-12-10] MEDS: PANTOPRAZOLE (EC) 40 MG TAB PO (06:12)
[2018-12-10] MEDS: LACTULOSE 30ML CUP PO ×4 (06:12→17:23)
[2018-12-10] MEDS: LEVOTHYROXINE 88 MCG TAB PO (06:12)
[2018-12-10 06:27] LABS: ADD MAN DIFF? NO
[2018-12-10 06:33] LABS: WHITE BLOOD COUNT 10.3 10^3/ul (4.8-10.8)
[2018-12-10 06:33] LABS: ABNORMAL IP MESSAGE 1; BASOPHILS % 0.2 % (0.0-2.0); EOSINOPHILS # 0.3 10^3/ul (0.0-0.5); EOSINOPHILS % 2.8 % (0.0-7.0); HEMATOCRIT 25.5 % (37.0-47.0); HEMOGLOBIN 8.9 g/dl (12.0-16.0); LYMPHOCYTES # 1.1 10^3/ul (0.8-2.9); LYMPHOCYTES % 10.2 % (15.0-51.0); MEAN CORPUSCULAR HEMOGLOBIN 35.3 pg (29.0-33.0); MEAN CORPUSCULAR HGB CONC 34.9 g/dl (32.0-37.0); MEAN CORPUSCULAR VOLUME 101.2 fl (82.0-101.0); MEAN PLATELET VOLUME 12.8 fl (7.4-10.4); MONOCYTE # 1.4 10^3/ul (0.3-0.9); MONOCYTES % 13.3 % (0.0-11.0); NEUTROPHIL # 7.5 10^3/ul (1.6-7.5); PLATELET COUNT 52 10^3/UL (140-415); RED BLOOD COUNT 2.52 10^6/ul (4.20-5.40); RED CELL DISTRIBUTION WIDTH 17.4 % (11.5-14.5)
[2018-12-10 06:40] LABS: POSITIVE DIFF @See below
[2018-12-10 07:16] LABS: ANION GAP 12 (5-13); BLOOD UREA NITROGEN 29 mg/dl (7-20); CALCIUM 8.7 mg/dl (8.4-10.2); CARBON DIOXIDE 24 mmol/L (21-31); CHLORIDE 101 mmol/L (97-110); CREATININE 6.86 mg/dl (0.44-1.00); Estimated GFR 6 mL/min (>60); GLUCOSE 148 mg/dl (70-220); POTASSIUM 3.7 mmol/L (3.5-5.1); SODIUM 137 mmol/L (135-144)
[2018-12-10 07:51] LABS: LIPASE < 10 U/L (23-300)
[2018-12-10] MEDS: HYDROmorphONE 2 MG TAB PO (08:42)
[2018-12-10] MEDS: SENNA TAB PO ×2 (08:42→19:58)
[2018-12-10] MEDS: FOLIC ACID 1 MG TAB PO (08:42)
[2018-12-10] MEDS: RIFAXIMIN 550 MG TAB PO ×2 (08:42→19:58)
[2018-12-10] MEDS: INSULIN ASPART [NOVOLOG] 3 ML PEN SC ×4 (09:40→19:57)
[2018-12-10] MEDS: ALBUMIN HUMAN 25% 100 ML IV (12:15)
[2018-12-10] MEDS: HEPARIN 1000 UNITS/ML 10 ML INJ CATHETER (14:06)
[2018-12-10] MEDS: CEFTRIAXONE 1 GM/50 ML (PMX) 50 ML IVPB (15:31)
[2018-12-10] MEDS: IODIXANOL LOCM 100 ML BTL (19:32)
[2018-12-10] MEDS: SOD CHLORIDE 0.9% 100 ML (19:32)
[2018-12-11 06:12] LABS: ADD MAN DIFF? NO
[2018-12-11 06:19] LABS: WHITE BLOOD COUNT 8.1 10^3/ul (4.8-10.8)
[2018-12-11 06:19] LABS: ABNORMAL IP MESSAGE 1; BASOPHILS % 0.4 % (0.0-2.0); EOSINOPHILS # 0.4 10^3/ul (0.0-0.5); HEMATOCRIT 24.8 % (37.0-47.0); HEMOGLOBIN 8.6 g/dl (12.0-16.0); LYMPHOCYTES # 1.3 10^3/ul (0.8-2.9); LYMPHOCYTES % 15.9 % (15.0-51.0); MEAN CORPUSCULAR HEMOGLOBIN 34.8 pg (29.0-33.0); MEAN CORPUSCULAR HGB CONC 34.7 g/dl (32.0-37.0); MEAN CORPUSCULAR VOLUME 100.4 fl (82.0-101.0); MEAN PLATELET VOLUME 12.5 fl (7.4-10.4); MONOCYTE # 1.5 10^3/ul (0.3-0.9); NEUTROPHIL # 4.9 10^3/ul (1.6-7.5); NEUTROPHILS % 60.3 % (39.0-77.0); PLATELET COUNT 39 10^3/UL (140-415); RED BLOOD COUNT 2.47 10^6/ul (4.20-5.40); RED CELL DISTRIBUTION WIDTH 17.6 % (11.5-14.5)
[2018-12-11 06:24] LABS: POSITIVE DIFF @See below
[2018-12-11] MEDS: LACTULOSE 30ML CUP PO ×5 (06:43→16:49)
[2018-12-11] MEDS: PANTOPRAZOLE (EC) 40 MG TAB PO (06:43)
[2018-12-11] MEDS: LEVOTHYROXINE 88 MCG TAB PO (06:44)
[2018-12-11 07:13] LABS: ANION GAP 9 (5-13); BLOOD UREA NITROGEN 20 mg/dl (7-20); CALCIUM 8.9 mg/dl (8.4-10.2); CARBON DIOXIDE 24 mmol/L (21-31); CHLORIDE 106 mmol/L (97-110); CREATININE 4.24 mg/dl (0.44-1.00); Estimated GFR 11 mL/min (>60); GLUCOSE 147 mg/dl (70-220); POTASSIUM 3.8 mmol/L (3.5-5.1); SODIUM 139 mmol/L (135-144)
[2018-12-11] MEDS: RIFAXIMIN 550 MG TAB PO ×2 (08:01→19:55)
[2018-12-11] MEDS: FOLIC ACID 1 MG TAB PO (08:01)
[2018-12-11] MEDS: SENNA TAB PO ×2 (08:01→19:55)
[2018-12-11] MEDS: INSULIN ASPART [NOVOLOG] 3 ML PEN SC ×4 (08:08→20:13)
[2018-12-11] MEDS: CEFTRIAXONE 1 GM/50 ML (PMX) 50 ML IVPB (14:33)
[2018-12-11] MEDS: ALBUMIN HUMAN 25% 100 ML IV ×2 (14:33→19:56)
[2018-12-12] MEDS: LACTULOSE 30ML CUP PO ×4 (05:45→16:58)
[2018-12-12] MEDS: ALBUMIN HUMAN 25% 100 ML IV ×2 (05:46→09:31)
[2018-12-12] MEDS: LEVOTHYROXINE 88 MCG TAB PO (05:46)
[2018-12-12] MEDS: PANTOPRAZOLE (EC) 40 MG TAB PO (05:46)
[2018-12-12 06:34] LABS: ABNORMAL IP MESSAGE 1; HEMATOCRIT 22.9 % (37.0-47.0); MEAN CORPUSCULAR HEMOGLOBIN 34.5 pg (29.0-33.0); MEAN CORPUSCULAR HGB CONC 34.9 g/dl (32.0-37.0); MEAN CORPUSCULAR VOLUME 98.7 fl (82.0-101.0); MEAN PLATELET VOLUME 13.6 fl (7.4-10.4); RED BLOOD COUNT 2.32 10^6/ul (4.20-5.40); RED CELL DISTRIBUTION WIDTH 17.2 % (11.5-14.5)
[2018-12-12 06:35] LABS: POSITIVE DIFF @See below
[2018-12-12 06:36] LABS: PLATELET COUNT 28 10^3/UL (140-415)
[2018-12-12 06:37] LABS: ADD MAN DIFF? YES
[2018-12-12 07:02] LABS: ANION GAP 12 (5-13); BLOOD UREA NITROGEN 31 mg/dl (7-20); CALCIUM 9.1 mg/dl (8.4-10.2); CARBON DIOXIDE 23 mmol/L (21-31); CHLORIDE 105 mmol/L (97-110); CREATININE 5.46 mg/dl (0.44-1.00); Estimated GFR 8 mL/min (>60); GLUCOSE 158 mg/dl (70-220); POTASSIUM 3.7 mmol/L (3.5-5.1); SODIUM 140 mmol/L (135-144)
[2018-12-12] MEDS: FOLIC ACID 1 MG TAB PO (07:47)
[2018-12-12] MEDS: RIFAXIMIN 550 MG TAB PO ×2 (07:47→20:28)
[2018-12-12] MEDS: SENNA TAB PO ×2 (07:47→20:28)
[2018-12-12] MEDS: INSULIN ASPART [NOVOLOG] 3 ML PEN SC ×4 (07:57→20:42)
[2018-12-12 08:18] LABS: ANISOCYTOSIS 3+ (0-0); BAND NEUTROPHILS #M 0.2 10^3/ul (0.0-0.6); BAND NEUTROPHILS % (M) 4 % (0-4); BASOPHILS % (M) 1 % (0-2); BURR CELLS 1+ (0-0); EOSINOPHILS % (M) 8 % (0-7); LYMPHOCYTES #M 1.2 10^3/ul (0.8-2.9); LYMPHOCYTES % (M) 18 % (15-51); MONOCYTE #M 0.4 10^3/ul (0.3-0.9); MONOCYTES % (M) 7 % (0-11); OVALOCYTES 1+ (0-0); PLATELET ESTIMATE SIG DECREASED; PLATELET MORPHOLOGY COMMENT @See below; POIKILOCYTOSIS 2+ (0-0); REACTIVE LYMPHOCYTES #M 0.2 10^3/ul (0.0-0.0); REACTIVE LYMPHOCYTES% (M) 3 % (0-0); SEG NEUT #M 4.1 10^3/ul (1.6-7.5); SEGMENTED NEUTROPHILS (M) % 59 % (39-77); SMUDGE%M 20 % (0-0); TARGET CELLS 1+ (0-0)
[2018-12-12] MEDS: HEPARIN 1000 UNITS/ML 10 ML INJ CATHETER (12:29)
[2018-12-12] MEDS: CEFTRIAXONE 1 GM/50 ML (PMX) 50 ML IVPB (15:31)
[2018-12-12] MEDS: HYDROmorphONE 0.5 MG/0.5 ML SYG IV (22:14)
[2018-12-13] MEDS: HYDROmorphONE 0.5 MG/0.5 ML SYG IV ×2 (03:27→08:00)
[2018-12-13] MEDS: LACTULOSE 30ML CUP PO ×5 (06:00→17:14)
[2018-12-13 06:22] LABS: ADD MAN DIFF? NO
[2018-12-13] MEDS: PANTOPRAZOLE (EC) 40 MG TAB PO (06:28)
[2018-12-13 06:31] LABS: ABNORMAL IP MESSAGE 1; BASOPHILS % 0.4 % (0.0-2.0); EOSINOPHILS # 0.3 10^3/ul (0.0-0.5); EOSINOPHILS % 4.9 % (0.0-7.0); HEMATOCRIT 23.4 % (37.0-47.0); HEMOGLOBIN 8.3 g/dl (12.0-16.0); LYMPHOCYTES # 1.9 10^3/ul (0.8-2.9); LYMPHOCYTES % 27.6 % (15.0-51.0); MEAN CORPUSCULAR HGB CONC 35.5 g/dl (32.0-37.0); MEAN CORPUSCULAR VOLUME 98.7 fl (82.0-101.0); MONOCYTE # 1.1 10^3/ul (0.3-0.9); MONOCYTES % 15.7 % (0.0-11.0); NEUTROPHIL # 3.6 10^3/ul (1.6-7.5); RED BLOOD COUNT 2.37 10^6/ul (4.20-5.40)
[2018-12-13 06:54] LABS: POSITIVE DIFF @See below
[2018-12-13 06:57] LABS: PLATELET COUNT 22 10^3/UL (140-415)
[2018-12-13] MEDS: LEVOTHYROXINE 88 MCG TAB PO (07:00)
[2018-12-13 07:06] LABS: ANION GAP 11 (5-13); BLOOD UREA NITROGEN 21 mg/dl (7-20); CARBON DIOXIDE 24 mmol/L (21-31); CHLORIDE 101 mmol/L (97-110); CREATININE 3.72 mg/dl (0.44-1.00); Estimated GFR 13 mL/min (>60); GLUCOSE 254 mg/dl (70-220); POTASSIUM 3.6 mmol/L (3.5-5.1); SODIUM 136 mmol/L (135-144)
[2018-12-13] MEDS: FOLIC ACID 1 MG TAB PO (08:01)
[2018-12-13] MEDS: RIFAXIMIN 550 MG TAB PO ×2 (08:01→20:29)
[2018-12-13] MEDS: SENNA TAB PO ×2 (08:01→20:29)
[2018-12-13] MEDS: INSULIN ASPART [NOVOLOG] 3 ML PEN SC ×4 (08:07→20:36)
[2018-12-13] MEDS: CEFTRIAXONE 1 GM/50 ML (PMX) 50 ML IVPB (15:21)
[2018-12-13] MEDS: HYDROmorphONE 2 MG TAB PO (20:29)
[2018-12-14] MEDS: PANTOPRAZOLE (EC) 40 MG TAB PO (06:06)
[2018-12-14] MEDS: LACTULOSE 30ML CUP PO ×5 (06:06→23:51)
[2018-12-14 06:15] LABS: ADD MAN DIFF? NO
[2018-12-14 06:21] LABS: ABNORMAL IP MESSAGE 1; BASOPHILS % 0.5 % (0.0-2.0); EOSINOPHILS # 0.4 10^3/ul (0.0-0.5); EOSINOPHILS % 6.1 % (0.0-7.0); HEMATOCRIT 23.5 % (37.0-47.0); HEMOGLOBIN 8.3 g/dl (12.0-16.0); LYMPHOCYTES # 1.6 10^3/ul (0.8-2.9); LYMPHOCYTES % 26.2 % (15.0-51.0); MEAN CORPUSCULAR HEMOGLOBIN 34.9 pg (29.0-33.0); MEAN CORPUSCULAR HGB CONC 35.3 g/dl (32.0-37.0); MEAN CORPUSCULAR VOLUME 98.7 fl (82.0-101.0); MONOCYTES % 15.9 % (0.0-11.0); NEUTROPHIL # 3.2 10^3/ul (1.6-7.5); RED BLOOD COUNT 2.38 10^6/ul (4.20-5.40); RED CELL DISTRIBUTION WIDTH 17.1 % (11.5-14.5)
[2018-12-14 06:21] LABS: WHITE BLOOD COUNT 6.2 10^3/ul (4.8-10.8)
[2018-12-14] MEDS: LEVOTHYROXINE 88 MCG TAB PO (06:44)
[2018-12-14 06:56] LABS: PLATELET COUNT 21 10^3/UL (140-415); POSITIVE DIFF @See below
[2018-12-14 06:59] LABS: ANION GAP 12 (5-13); BLOOD UREA NITROGEN 31 mg/dl (7-20); CARBON DIOXIDE 26 mmol/L (21-31); CHLORIDE 99 mmol/L (97-110); CREATININE 5.01 mg/dl (0.44-1.00); Estimated GFR 9 mL/min (>60); GLUCOSE 193 mg/dl (70-220); POTASSIUM 3.8 mmol/L (3.5-5.1); SODIUM 137 mmol/L (135-144)
[2018-12-14] MEDS: INSULIN ASPART [NOVOLOG] 3 ML PEN SC ×4 (07:39→20:27)
[2018-12-14] MEDS: SENNA TAB PO ×2 (09:11→20:33)
[2018-12-14] MEDS: HYDROmorphONE 2 MG TAB PO (09:11)
[2018-12-14] MEDS: RIFAXIMIN 550 MG TAB PO ×2 (09:11→20:33)
[2018-12-14] MEDS: FOLIC ACID 1 MG TAB PO (09:11)
[2018-12-14] MEDS: CEFTRIAXONE 1 GM/50 ML (PMX) 50 ML IVPB (14:55)
[2018-12-14] MEDS: ACETAMINOPHEN 325 MG TAB PO (20:33)
[2018-12-14] MEDS: HYDROCODONE/APAP (5/325) TAB PO (23:55)
[2018-12-15] MEDS: PANTOPRAZOLE (EC) 40 MG TAB PO (06:00)
[2018-12-15] MEDS: LACTULOSE 30ML CUP PO ×3 (06:00→17:15)
[2018-12-15] MEDS: LEVOTHYROXINE 88 MCG TAB PO (06:25)
[2018-12-15] MEDS: HYDROCODONE/APAP (5/325) TAB PO (08:06)
[2018-12-15] MEDS: FOLIC ACID 1 MG TAB PO (08:06)
[2018-12-15] MEDS: RIFAXIMIN 550 MG TAB PO ×3 (08:06→20:39)
[2018-12-15] MEDS: SENNA TAB PO ×3 (08:07→20:39)
[2018-12-15] MEDS: INSULIN ASPART [NOVOLOG] 3 ML PEN SC ×6 (08:14→20:35)
[2018-12-15] MEDS: SOD CHLORIDE 0.9% 250 ML IV* (11:20)
[2018-12-15] MEDS: ALBUMIN HUMAN 25% 100 ML IV ×2 (16:44→18:19)
[2018-12-15 18:48] LABS: TYPE AND SCREEN 1
[2018-12-15] MEDS: HEPARIN 1000 UNITS/ML 10 ML INJ CATHETER (19:47)
[2018-12-15] MEDS: INSULIN GLARGINE [LANTus] (100 UNITS/ML) SYG SC (22:59)
[2018-12-16] MEDS: LACTULOSE 30ML CUP PO ×5 (00:24→17:25)
[2018-12-16] MEDS: PANTOPRAZOLE (EC) 40 MG TAB PO (05:54)
[2018-12-16] MEDS: HYDROCODONE/APAP (5/325) TAB PO (05:54)
[2018-12-16 05:55] LABS: ADD MAN DIFF? NO
[2018-12-16 06:01] LABS: WHITE BLOOD COUNT 5.9 10^3/ul (4.8-10.8)
[2018-12-16 06:01] LABS: ABNORMAL IP MESSAGE 1; BASOPHILS % 0.3 % (0.0-2.0); EOSINOPHILS # 0.3 10^3/ul (0.0-0.5); EOSINOPHILS % 4.6 % (0.0-7.0); HEMATOCRIT 20.7 % (37.0-47.0); HEMOGLOBIN 7.3 g/dl (12.0-16.0); LYMPHOCYTES # 1.1 10^3/ul (0.8-2.9); MEAN CORPUSCULAR HEMOGLOBIN 34.8 pg (29.0-33.0); MEAN CORPUSCULAR HGB CONC 35.3 g/dl (32.0-37.0); MEAN CORPUSCULAR VOLUME 98.6 fl (82.0-101.0); MEAN PLATELET VOLUME 11.1 fl (7.4-10.4); MONOCYTE # 0.7 10^3/ul (0.3-0.9); MONOCYTES % 11.2 % (0.0-11.0); NEUTROPHIL # 3.8 10^3/ul (1.6-7.5); NEUTROPHILS % 64.4 % (39.0-77.0); RED CELL DISTRIBUTION WIDTH 17.3 % (11.5-14.5)
[2018-12-16 06:08] LABS: PLATELET COUNT 46 10^3/UL (140-415); POSITIVE DIFF @See below
[2018-12-16 06:26] LABS: ANION GAP 10 (5-13); BLOOD UREA NITROGEN 17 mg/dl (7-20); CALCIUM 8.7 mg/dl (8.4-10.2); CARBON DIOXIDE 28 mmol/L (21-31); CHLORIDE 100 mmol/L (97-110); CREATININE 3.54 mg/dl (0.44-1.00); Estimated GFR 13 mL/min (>60); GLUCOSE 253 mg/dl (70-220); POTASSIUM 3.6 mmol/L (3.5-5.1); SODIUM 138 mmol/L (135-144)
[2018-12-16 06:32] LABS: AMMONIA 15 umol/l (9-30)
[2018-12-16 06:36] LABS: PHOSPHORUS 2.2 mg/dl (2.5-4.9)
[2018-12-16 06:36] LABS: MAGNESIUM 2.2 mg/dl (1.7-2.5)
[2018-12-16] MEDS: LEVOTHYROXINE 88 MCG TAB PO (07:02)
[2018-12-16] MEDS: INSULIN ASPART [NOVOLOG] 3 ML PEN SC ×7 (07:55→21:23)
[2018-12-16] MEDS: FOLIC ACID 1 MG TAB PO (08:16)
[2018-12-16] MEDS: SENNA TAB PO ×2 (08:16→21:29)
[2018-12-16] MEDS: RIFAXIMIN 550 MG TAB PO ×2 (08:16→21:29)
[2018-12-16 11:17] LABS: HEMATOCRIT 20.4 % (37.0-47.0); HEMOGLOBIN 7.3 g/dl (12.0-16.0)
[2018-12-16] MEDS: POTASSIUM PHOSPHATE 20 MEQ in SOD CHLORIDE 0.9% 250 ML IVPB (12:00)
[2018-12-16] MEDS: SOD CHLORIDE 0.9% 250 ML IV* (13:01)
[2018-12-16] MEDS: INSULIN GLARGINE [LANTus] (100 UNITS/ML) SYG SC (21:23)
[2018-12-17] MEDS: LACTULOSE 30ML CUP PO ×4 (00:23→18:00)
[2018-12-17] MEDS: INSULIN ASPART [NOVOLOG] 3 ML PEN SC ×8 (03:33→21:33)
[2018-12-17] MEDS: PANTOPRAZOLE (EC) 40 MG TAB PO (06:00)
[2018-12-17] MEDS: LEVOTHYROXINE 88 MCG TAB PO (06:03)
[2018-12-17 06:11] LABS: ADD MAN DIFF? NO
[2018-12-17 06:13] LABS: ABNORMAL IP MESSAGE 1; BASOPHILS % 0.3 % (0.0-2.0); EOSINOPHILS # 0.3 10^3/ul (0.0-0.5); EOSINOPHILS % 4.4 % (0.0-7.0); HEMATOCRIT 20.8 % (37.0-47.0); HEMOGLOBIN 7.3 g/dl (12.0-16.0); LYMPHOCYTES # 1.4 10^3/ul (0.8-2.9); LYMPHOCYTES % 21.2 % (15.0-51.0); MEAN CORPUSCULAR HEMOGLOBIN 34.9 pg (29.0-33.0); MEAN CORPUSCULAR HGB CONC 35.1 g/dl (32.0-37.0); MEAN CORPUSCULAR VOLUME 99.5 fl (82.0-101.0); MEAN PLATELET VOLUME 13.3 fl (7.4-10.4); MONOCYTE # 0.9 10^3/ul (0.3-0.9); MONOCYTES % 12.9 % (0.0-11.0); NEUTROPHILS % 60.7 % (39.0-77.0); RED BLOOD COUNT 2.09 10^6/ul (4.20-5.40); RED CELL DISTRIBUTION WIDTH 17.7 % (11.5-14.5)
[2018-12-17 06:13] LABS: WHITE BLOOD COUNT 6.6 10^3/ul (4.8-10.8)
[2018-12-17 06:29] LABS: PLATELET COUNT 43 10^3/UL (140-415); POSITIVE DIFF @See below
[2018-12-17 06:57] LABS: MAGNESIUM 2.2 mg/dl (1.7-2.5)
[2018-12-17 06:57] LABS: PHOSPHORUS 3.4 mg/dl (2.5-4.9)
[2018-12-17 07:00] LABS: ANION GAP 12 (5-13); BLOOD UREA NITROGEN 24 mg/dl (7-20); CALCIUM 8.6 mg/dl (8.4-10.2); CARBON DIOXIDE 27 mmol/L (21-31); CHLORIDE 100 mmol/L (97-110); CREATININE 4.96 mg/dl (0.44-1.00); Estimated GFR 9 mL/min (>60); GLUCOSE 228 mg/dl (70-220); POTASSIUM 3.5 mmol/L (3.5-5.1); SODIUM 139 mmol/L (135-144)
[2018-12-17] MEDS: RIFAXIMIN 550 MG TAB PO ×2 (08:20→21:05)
[2018-12-17] MEDS: FOLIC ACID 1 MG TAB PO (08:20)
[2018-12-17] MEDS: SENNA TAB PO ×2 (08:23→21:00)
[2018-12-17 09:32] LABS: IMMEDIATE SPIN CROSSMATCH 1 2
[2018-12-17] MEDS: HEPARIN 1000 UNITS/ML 10 ML INJ CATHETER (12:10)
[2018-12-17] MEDS: HYDROmorphONE 2 MG TAB PO (21:08)
[2018-12-17] MEDS: INSULIN GLARGINE [LANTus] (100 UNITS/ML) SYG SC (21:33)
[2018-12-18] MEDS: HYDROCODONE/APAP (5/325) TAB PO (01:28)
[2018-12-18] MEDS: DIPHENHYDRAMINE 50 MG INJ IV ×2 (03:47→18:32)
[2018-12-18 05:35] LABS: ADD MAN DIFF? NO
[2018-12-18] MEDS: LACTULOSE 30ML CUP PO ×4 (05:40→17:04)
[2018-12-18 05:41] LABS: ABNORMAL IP MESSAGE 1; BASOPHILS % 0.4 % (0.0-2.0); EOSINOPHILS # 0.3 10^3/ul (0.0-0.5); EOSINOPHILS % 3.4 % (0.0-7.0); HEMATOCRIT 26.5 % (37.0-47.0); HEMOGLOBIN 9.3 g/dl (12.0-16.0); LYMPHOCYTES # 1.6 10^3/ul (0.8-2.9); LYMPHOCYTES % 19.5 % (15.0-51.0); MEAN CORPUSCULAR HEMOGLOBIN 34.1 pg (29.0-33.0); MEAN CORPUSCULAR HGB CONC 35.1 g/dl (32.0-37.0); MEAN CORPUSCULAR VOLUME 97.1 fl (82.0-101.0); MONOCYTE # 0.8 10^3/ul (0.3-0.9); MONOCYTES % 9.7 % (0.0-11.0); NEUTROPHIL # 5.4 10^3/ul (1.6-7.5); NEUTROPHILS % 66.8 % (39.0-77.0); PLATELET COUNT 39 10^3/UL (140-415); RED BLOOD COUNT 2.73 10^6/ul (4.20-5.40); RED CELL DISTRIBUTION WIDTH 17.7 % (11.5-14.5)
[2018-12-18 05:41] LABS: WHITE BLOOD COUNT 8.1 10^3/ul (4.8-10.8)
[2018-12-18] MEDS: LEVOTHYROXINE 88 MCG TAB PO (05:41)
[2018-12-18] MEDS: PANTOPRAZOLE (EC) 40 MG TAB PO (05:41)
[2018-12-18 06:43] LABS: POSITIVE DIFF @See below
[2018-12-18] MEDS: INSULIN ASPART [NOVOLOG] 3 ML PEN SC ×7 (08:09→20:46)
[2018-12-18] MEDS: FOLIC ACID 1 MG TAB PO (08:31)
[2018-12-18] MEDS: RIFAXIMIN 550 MG TAB PO ×2 (08:31→20:46)
[2018-12-18] MEDS: SENNA TAB PO ×2 (08:31→20:45)
[2018-12-18] MEDS: INSULIN GLARGINE [LANTus] (100 UNITS/ML) SYG SC (20:58)
== END 2018-12-18 22:20 | disposition home health service (06) | DRG 371 ==
LOC: E/R 02:57 → 6WM 06:52
PROVIDERS: Internal Medicine
PROC: 5A1D70Z Performance of Urinary Filtration, Intermittent, Less than 6 Hours Per Day (ICD-10-PCS; 2018-12-08)
PROC: 0W9G3ZX Drainage of Peritoneal Cavity, Percutaneous Approach, Diagnostic (ICD-10-PCS; principal; 2018-12-09)
PROC: 30233R1 Transfusion of Nonautologous Platelets into Peripheral Vein, Percutaneous Approach (ICD-10-PCS; 2018-12-15)
PROC: 30233N1 Transfusion of Nonautologous Red Blood Cells into Peripheral Vein, Percutaneous Approach (ICD-10-PCS; 2018-12-17)
DX: K65.2 Spontaneous bacterial peritonitis (principal); N18.6 End stage renal disease; E11.22 Type 2 diabetes mellitus with diabetic chronic kidney disease; K70.40 Alcoholic hepatic failure without coma; D69.6 Thrombocytopenia, unspecified; K70.31 Alcoholic cirrhosis of liver with ascites; B96.20 Unspecified Escherichia coli [E. coli] as the cause of diseases classified elsewhere; E03.9 Hypothyroidism, unspecified; D64.9 Anemia, unspecified; Z16.23 Resistance to quinolones and fluoroquinolones; Z79.4 Long term (current) use of insulin; Z99.2 Dependence on renal dialysis
CPT/HCPCS: 36415; 36430; 71045; 74176; 75635; 80048; 80053; 80061; 82042; 82140; 82947; 82962; 83036; 83605; 83690; 83735; 84100; 84157; 84439; 84443; 85014; 85018; 85025; 85610; 85730; 86850; 86900; 86901; 86920; 87040; 87070; 87102; 87116; 87340; 89051; 90935; 92526; 92610; 93005; 94640; 96374; 96375; 97110; 97116; 97162; 97530; 99285-25; G0378

== ENCOUNTER 2019-02-23 15:55 | Emergency (ER) | payer MEDICARE ==
[2019-02-23] MEDS ORDERED: morphine 2 MG INJ IV (16:34)
[2019-02-23 16:42] LABS: ABNORMAL IP MESSAGE 1; HEMATOCRIT 24.5 % (37.0-47.0); HEMOGLOBIN 8.3 g/dl (12.0-16.0); MEAN CORPUSCULAR HEMOGLOBIN 35.9 pg (29.0-33.0); MEAN CORPUSCULAR HGB CONC 33.9 g/dl (32.0-37.0); MEAN CORPUSCULAR VOLUME 106.1 fl (82.0-101.0); RED BLOOD COUNT 2.31 10^6/ul (4.20-5.40); RED CELL DISTRIBUTION WIDTH 18.1 % (11.5-14.5)
[2019-02-23 16:42] LABS: WHITE BLOOD COUNT 6.2 10^3/ul (4.8-10.8)
[2019-02-23 16:49] LABS: PLATELET COUNT 37 10^3/UL (140-415); POSITIVE DIFF @See below
[2019-02-23 16:50] LABS: ADD MAN DIFF? YES
[2019-02-23] MEDS: ONDANSETRON 4 MG INJ IV (16:53)
[2019-02-23] MEDS: HYDROmorphONE 0.5 MG/0.5 ML SYG IV ×2 (16:53→18:25)
[2019-02-23 16:58] LABS: ALANINE AMINOTRANSFERASE 17 IU/L (13-69); ALBUMIN 2.9 g/dl (3.3-4.9); ALBUMIN/GLOBULIN RATIO 0.65; ALKALINE PHOSPHATASE 185 IU/L (42-121); ANION GAP 7 (5-13); ASPARTATE AMINO TRANSFERASE 30 IU/L (15-46); BILIRUBIN,INDIRECT 2.4 mg/dl (0-1.1); BILIRUBIN,TOTAL 2.4 mg/dl (0.2-1.3); BLOOD UREA NITROGEN 9 mg/dl (7-20); CALCIUM 7.9 mg/dl (8.4-10.2); CARBON DIOXIDE 32 mmol/L (21-31); CHLORIDE 98 mmol/L (97-110); Estimated GFR 13 mL/min (>60); GLUCOSE 236 mg/dl (70-220); MAGNESIUM 2.2 mg/dl (1.7-2.5); SODIUM 137 mmol/L (135-144); TOTAL PROTEIN 7.3 g/dl (6.1-8.1)
[2019-02-23 17:00] LABS: LIPASE < 10 U/L (23-300)
[2019-02-23 17:10] LABS: INR 2.28; PROTIME 25.2 Sec (11.9-14.9)
[2019-02-23 17:11] LABS: PARTIAL THROMBOPLASTIN TIME 46.3 Sec (23.0-35.0)
[2019-02-23 17:14] LABS: ACANTHOCYTES 1+ (0-0); ANISOCYTOSIS 2+ (0-0); BAND NEUTROPHILS #M 0.1 10^3/ul (0.0-0.6); BAND NEUTROPHILS % (M) 3 % (0-4); BASOPHILS % (M) 1 % (0-2); BURR CELLS 2+ (0-0); EOSINOPHILS % (M) 3 % (0-7); HYPOCHROMASIA 1+ (0-0); LYMPHOCYTES #M 1.1 10^3/ul (0.8-2.9); LYMPHOCYTES % (M) 18 % (15-51); MONOCYTE #M 0.3 10^3/ul (0.3-0.9); MONOCYTES % (M) 5 % (0-11); OVALOCYTES 2+ (0-0); PLATELET ESTIMATE SIG DECREASED; POIKILOCYTOSIS 2+ (0-0); POLYCHROMASIA 1+ (0-0); SEG NEUT #M 4.4 10^3/ul (1.6-7.5); SEGMENTED NEUTROPHILS (M) % 71 % (39-77); SMUDGE%M 20 % (0-0)
== END 2019-02-23 22:32 | disposition left against medical advice (07) ==
LOC: E/R 15:55
DX: M79.81 Nontraumatic hematoma of soft tissue (principal); D64.9 Anemia, unspecified; D69.6 Thrombocytopenia, unspecified; N18.9 Chronic kidney disease, unspecified; E11.22 Type 2 diabetes mellitus with diabetic chronic kidney disease; E03.9 Hypothyroidism, unspecified; Z87.891 Personal history of nicotine dependence; Z99.2 Dependence on renal dialysis
CPT/HCPCS: 36415; 74176; 80053; 82962; 83690; 83735; 85025; 85610; 85730; 96374; 96375; 96376; 99285-25

== ENCOUNTER 2019-04-22 10:07 | Emergency (ER) | payer MEDICARE, MEDICAID ==
[2019-04-22] MEDS: SOD CHLORIDE 0.9% 250 ML IV (10:36)
[2019-04-22] MEDS: ONDANSETRON 4 MG INJ IV (11:21)
[2019-04-22] MEDS: HYDROmorphONE 1 MG/ML SYG IV (11:22)
[2019-04-22] MEDS: DIAZEPAM 5 MG/ML SYG IV (11:22)
[2019-04-22 11:44] LABS: ANION GAP 8 (5-13); BLOOD UREA NITROGEN 19 mg/dl (7-20); CALCIUM 7.9 mg/dl (8.4-10.2); CARBON DIOXIDE 26 mmol/L (21-31); CHLORIDE 99 mmol/L (97-110); CREATININE 5.11 mg/dl (0.44-1.00); Estimated GFR 9 mL/min (>60); GLUCOSE 190 mg/dl (70-220); MAGNESIUM 2.3 mg/dl (1.7-2.5); POTASSIUM 4.9 mmol/L (3.5-5.1); SODIUM 133 mmol/L (135-144)
== END 2019-04-22 14:08 | disposition home or self-care (01) ==
LOC: E/R 10:07
DX: E11.21 Type 2 diabetes mellitus with diabetic nephropathy (principal); N18.6 End stage renal disease; E11.22 Type 2 diabetes mellitus with diabetic chronic kidney disease; Z79.4 Long term (current) use of insulin
CPT/HCPCS: 36415; 80048; 83735; 96374; 96375; 99284-25

== ENCOUNTER 2019-06-29 11:46 | Emergency (ER) | payer MEDICARE, MEDICAID ==
[2019-06-29 12:14] LABS: WHITE BLOOD COUNT 3.1 10^3/ul (4.8-10.8)
[2019-06-29 12:14] LABS: ABNORMAL IP MESSAGE 1; HEMATOCRIT 22.6 % (37.0-47.0); MEAN CORPUSCULAR HEMOGLOBIN 37.7 pg (29.0-33.0); MEAN CORPUSCULAR HGB CONC 35.4 g/dl (32.0-37.0); MEAN CORPUSCULAR VOLUME 106.6 fl (82.0-101.0); RED BLOOD COUNT 2.12 10^6/ul (4.20-5.40); RED CELL DISTRIBUTION WIDTH 17.7 % (11.5-14.5)
[2019-06-29 12:18] LABS: ADD MAN DIFF? YES; POSITIVE DIFF @See below
[2019-06-29 12:23] LABS: HEMOGLOBIN A1C 6.6 % (0-5.9)
[2019-06-29 12:32] LABS: PROTIME 23.6 Sec (11.9-14.9); PT RATIO 1.8
[2019-06-29 12:33] LABS: PARTIAL THROMBOPLASTIN TIME 45.9 Sec (23.0-35.0)
[2019-06-29 12:33] LABS: AMMONIA 19 umol/l (9-30)
[2019-06-29 12:36] LABS: ANION GAP 6 (5-13); BLOOD UREA NITROGEN 14 mg/dl (7-20); CALCIUM 7.9 mg/dl (8.4-10.2); CARBON DIOXIDE 31 mmol/L (21-31); CHLORIDE 96 mmol/L (97-110); CHOL/HDL RATIO 2.3 RATIO; CHOLESTEROL 83 mg/dl (100-200); CREATINE KINASE 38 IU/L (23-200); CREATININE 3.21 mg/dl (0.44-1.00); Estimated GFR 15 mL/min (>60); GLUCOSE 134 mg/dl (70-220); HDL CHOLESTEROL 35 mg/dl (37-92); LDL CHOLESTEROL,CALCULATED 36 mg/dl; POTASSIUM 4.1 mmol/L (3.5-5.1); SODIUM 133 mmol/L (135-144); TRIGLYCERIDES 59 mg/dl (0-149)
[2019-06-29 12:38] LABS: ETHANOL < 10.0 mg/dl (0-0)
[2019-06-29 12:46] LABS: ACANTHOCYTES 1+ (0-0); ANISOCYTOSIS 1+ (0-0); BAND NEUTROPHILS % (M) 3 % (0-4); CK INDEX 1.7; CK-MB 0.64 ng/ml (0.0-2.4); EOSINOPHILS % (M) 1 % (0-7); HYPOCHROMASIA 1+ (0-0); LYMPHOCYTES % (M) 33 % (15-51); METAMYELOCYTES %M 2 % (0-0); MONOCYTE #M 0.1 10^3/ul (0.3-0.9); MONOCYTES % (M) 4 % (0-11); PLATELET ESTIMATE DECREASED; POIKILOCYTOSIS 1+ (0-0); PROMYELOCYTES % (M) 1 % (0-0); SEG NEUT #M 1.7 10^3/ul (1.6-7.5); SEGMENTED NEUTROPHILS (M) % 56 % (39-77); SMUDGE%M 21 % (0-0); TROPONIN-I < 0.012 ng/ml (0.000-0.120)
[2019-06-29 12:49] LABS: PLATELET COUNT 34 10^3/UL (140-415)
[2019-06-29] MEDS: IOHEXOL 100 ML (13:34)
[2019-06-29] MEDS: SOD CHLORIDE 0.9% 100 ML (13:35)
[2019-06-29] MEDS: SOD CHLORIDE 0.9% 500 ML IV ×2 (13:41→14:50)
[2019-06-29] MEDS ORDERED: ACETAMINOPHEN 325 MG TAB PO ×2 (14:00→15:00)
[2019-06-29] MEDS ORDERED: ONDANSETRON 4 MG INJ IV ×2 (14:00→15:00)
[2019-06-29] MEDS ORDERED: morphine 2 MG INJ IV (15:00)
[2019-06-29] MEDS ORDERED: NACL 0.9% 3 ML SYG IV (15:00)
[2019-06-29] MEDS ORDERED: MAGNESIUM HYDROXIDE 30ML CUP PO (15:00)
[2019-06-29] MEDS ORDERED: HYDROCODONE/APAP (5/325) TAB PO (15:00)
[2019-06-29] MEDS ORDERED: SEVELAMER CARBONATE 0.8 GM PKT PO (18:00)
[2019-06-29] MEDS ORDERED: FAMOTIDINE 20 MG INJ IV (21:00)
[2019-06-29] MEDS ORDERED: GABAPENTIN 300 MG CAP PO (21:00)
[2019-06-29] MEDS ORDERED: LACTULOSE 30ML CUP PO (21:00)
[2019-06-29] MEDS ORDERED: THIAMINE 100 MG TAB PO (21:00)
[2019-06-30] MEDS ORDERED: LEVOTHYROXINE 88 MCG TAB PO (07:00)
[2019-06-30] MEDS ORDERED: FUROSEMIDE 40 MG TAB PO (09:00)
[2019-06-30] MEDS ORDERED: MULTIVIT/CA CARB/B CMPLX/FA TAB PO (09:00)
[2019-06-30] MEDS ORDERED: SPIRONOLACTONE 50 MG TAB PO (09:00)
[2019-06-30] MEDS ORDERED: FOLIC ACID 1 MG TAB PO (09:00)
[2019-06-30] MEDS ORDERED: PANTOPRAZOLE (EC) 40 MG TAB PO (09:00)
== END 2019-06-29 16:12 | disposition left against medical advice (07) ==
LOC: E/R 11:46
DX: G93.40 Encephalopathy, unspecified (principal); D64.9 Anemia, unspecified; E11.22 Type 2 diabetes mellitus with diabetic chronic kidney disease; N18.6 End stage renal disease; F17.210 Nicotine dependence, cigarettes, uncomplicated; Z99.2 Dependence on renal dialysis; Z79.4 Long term (current) use of insulin
CPT/HCPCS: 70450; 70496; 70498; 71045; 76775; 80048; 80061; 80307; 82140; 82550; 82553; 82962; 83036; 84484; 85025; 85610; 85730; 93005; 99285-25